=== PATIENT | male | born 1925 | race Caucasian/White ===

== ENCOUNTER 2016-10-25 21:45 | Inpatient (IN) | payer OTHER ==
[~2016-10-25] VITALS: Ht 172.7 cm; Wt 104.0 kg
[2016-10-25] MEDS ORDERED: ASPIRIN 325 MG TAB PO STA (21:50)
[2016-10-25] MEDS ORDERED: FUROSEMIDE 40 MG INJ IV STA (21:50)
[2016-10-25] MEDS ORDERED: NITROGLYCERIN 50 MG/D5W (PMX) 250 ML IV STA (21:50)
[2016-10-25 22:24] LABS: ABNORMAL IP MESSAGE 1; HEMATOCRIT 45.5 % (42.0-52.0); HEMOGLOBIN 14.9 g/dl (14.0-18.0); MEAN CORPUSCULAR HGB CONC 32.7 g/dl (32.0-37.0); MEAN CORPUSCULAR VOLUME 97.6 fl (82.0-101.0); PLATELET COUNT 255 10^3/UL (140-415); POSITIVE DIFF @See below; RED BLOOD COUNT 4.66 10^6/ul (4.70-6.10); RED CELL DISTRIBUTION WIDTH 12.7 % (11.5-14.5); WHITE BLOOD COUNT 14.7 10^3/ul (4.8-10.8)
[2016-10-25 22:40] LABS: INR 0.98
--- NOTE | 2016-10-25 22:40 | RADRPT ---
PROCEDURE: XR Chest. CLINICAL INDICATION: Chest pain. TECHNIQUE: Single frontal view of the chest. COMPARISON: None. FINDINGS: Cardiomegaly. Atherosclerotic calcifications in the thoracic aorta. Pulmonary vascular congestion an d bilateral patchy air space disease with right mid lung and left lung base atelectasis. No signs of pleural fluid or pneumothorax are seen. The osseous structures and soft tissues are unremarkable. IMPRESSION: Mild to moderate failure. RPTAT: [facility]U Physician Katlin Date Time Electronically viewed and signed by Physician Katlin on 10/25/2016 22:40 RS/
[2016-10-25 22:41] LABS: PARTIAL THROMBOPLASTIN TIME 29.6 Sec (25.0-35.0)
[2016-10-25 22:43] LABS: ANION GAP 14 (8-16); BLOOD UREA NITROGEN 24 mg/dl (7-20); CALCIUM 9.4 mg/dl (8.4-10.2); CARBON DIOXIDE 30 mmol/L (21-31); CHLORIDE 103 mmol/L (97-110); CREATININE 0.87 mg/dl (0.61-1.24); GLUCOSE 133 mg/dl (70-220); POTASSIUM 4.3 mmol/L (3.5-5.1); SODIUM 143 mmol/L (135-144)
[2016-10-25 22:55] LABS: B-TYPE NATRIURETIC PEPTIDE 343 PG/ML (0-450)
[2016-10-25 22:58] LABS: TROPONIN-I < 0.012 ng/ml (0.00-0.12)
[2016-10-25] MEDS ORDERED: CARV6.2579 PO (23:26)
[2016-10-25] MEDS ORDERED: POLY17PO6 PO (23:26)
[2016-10-25] MEDS ORDERED: LATA2.5D9 BOTH EYES (23:26)
[2016-10-25] MEDS ORDERED: OMEG-135 PO (23:26)
[2016-10-25] MEDS ORDERED: ASPI-664 PO (23:26)
[2016-10-25] MEDS ORDERED: MIRA50TA PO (23:26)
[2016-10-25] MEDS ORDERED: MULTI PO (23:26)
[2016-10-25] MEDS ORDERED: TAMS0.4C2 PO (23:26)
[2016-10-25] MEDS ORDERED: LISI40TA9 PO (23:26)
[2016-10-25] MEDS ORDERED: FELO2.5T3 PO (23:26)
[2016-10-25] MEDS ORDERED: GLUC100015 PO (23:26)
--- NOTE | 2016-10-25 23:32 | ERA ---
ER Documentation Chief Complaint Date/Time DATE: 10/25/16 TIME: 23:23 Chief Complaint BIB A RA89 from home,SOB,O2 sat on room air 70s per EMS report HPI 89-year-old male was brought in by paramedics in respiratory extremis on CPAP for acute onset shortness of breath started shortly after the patient had eaten earlier in the evening. His condition deteriorated and was called. On arrival the patient had oxygen saturation in the 70s on room air. He had chest discomfort as well. History is obtained from patient's is unable to speak currently. ROS Unobtainable. Allergies Allergies: Coded Allergies: No Known Allergy (Unverified , 10/25/16) PMhx/Soc Medical and Surgical Hx: pt denies Surgical Hx History of Surgery: No Anesthesia Reaction: No Hx Neurological Disorder: No Hx Respiratory Disorders: No Hx Cardiac Disorders: Yes (htn, hyperlipidemia ) Hx Psychiatric Problems: No Hx Miscellaneous Medical Probl: No Hx Alcohol Use: No Hx Substance Use: No Hx Tobacco Use: No Smoking Status: Never smoker Physical Exam Vitals Vital Signs Date Time Temp Pulse Resp B/P Pulse Ox O2 Delivery O2 Flow Rate FiO2 10/25/16 22:51 99.6 75 20 126/64 100 BIPAP 10/25/16 22:29 99.6 82 20 132/81 100 BIPAP 10/25/16 22:19 99.6 82 25 140/78 100 BIPAP 10/25/16 22:01 101 96 100 10/25/16 21:56 99.6 118 25 204/131 100 Physical Exam Const: [] Severe respiratory distress. Head: Atraumatic Eyes: Normal Conjunctiva ENT: Normal External Ears, Nose and Mouth. Neck: Full range of motion..~ JVD to the level of the mandible. . Resp: Decreased bibasilar breath sounds, tachypnea with accessory muscle use. Including the scalenes. Cardio: Regular Tachycardia, no murmurs Abd: Soft, non tender, non distended. Normal bowel sounds Skin: No petechiae or rashes Back: No midline or flank tenderness Ext: Mild pedal edema Neur: Awake and alert, Moves all 4 extremities with no focal deficits. Psych: Anxious. Result Diagram: 10/25/16215610/25/162156 Results 24 hrs Laboratory Tests Test 10/25/16 21:57 White Blood Count 14.710^3/ul Red Blood Count 4.6610^6/ul Hemoglobin 14.9g/dl Hematocrit 45.5% Mean Corpuscular Volume 97.6fl Mean Corpuscular Hemoglobin 32.0pg Mean Corpuscular Hemoglobin Concent 32.7g/dl Red Cell Distribution Width 12.7% Platelet Count 10159^3/UL Mean Platelet Volume 11.0fl Neutrophils % % Lymphocytes % % Monocytes % % Eosinophils % % Basophils % % Nucleated Red Blood Cells % 0.0/100WBC Neutrophils # 10^3/ul Lymphocytes # 10^3/ul Monocytes # 10^3/ul Eosinophils # 10^3/ul Basophils # 10^3/ul Nucleated Red Blood Cells # 10^3/ul Prothrombin Time 13.0Sec Prothrombin Time Ratio 1.0 INR International Normalized Ratio 0.98 Activated Partial Thromboplast Time 29.6Sec Sodium Level 143mmol/L Potassium Level 4.3mmol/L Chloride Level 103mmol/L Carbon Dioxide Level 30mmol/L Anion Gap 14 Blood Urea Nitrogen 24mg/dl Creatinine 0.87mg/dl Glucose Level 133mg/dl Calcium Level 9.4mg/dl Troponin I < 0.012ng/ml B-Type Natriuretic Peptide 343PG/ML Current Medications Medications (Trade) Dose Ordered Sig/Shan Route PRN Reason Start Time Stop Time Status Last Admin Dose Admin Aspirin 325 mg 325 mg ONCE STAT PO 10/25/16 21:50 10/25/16 21:51 DC Nitroglycerin/ Dextrose (Nitroglycerin 50 Mg/D5W (Pmx)) 250 ml @ 6 mls/hr ONCE STAT IV 10/25/16 21:50 10/27/16 15:29 10/25/16 22:05 Furosemide (Lasix) 40 mg ONCE STAT IV 10/25/16 21:50 10/25/16 21:51 DC 10/25/16 22:05 Procedures/MDM Hypoxic respiratory failure possibly secondary to congestive heart failure. Market ST depressions in the anterolateral leads on histology technician EKG with mild resolution of the lateral depressions but still ST depressions in anterior leads concerning for acute ischemia. Was given aspirin. Patient was immediately placed on BiPAP and nitro drip was started at 30 mcg. Patient was given 40 mg of Lasix. Symptoms began to resolve within 20 minutes and patient was able to provide some history. Conspicuously, BNP is not elevated. There is signs of mild heart failure on x-ray. Patient will be admitted to telemetry for further workup and monitoring of his condition and trending of troponins. Patient is significantly stabilized the patient is appropriate for telemetry. Dr. Hutchins is admitting. EKG interpretation: Sinus tachycardia rate of 106, normal axis, anterior ST depressions returning for acute ischemia, normal intervals. traffic monitor specialist interpretation: Initial sinus tachycardia followed by normal sinus rhythm Chest x-ray interpretation: Engorgement of pulmonary vasculature concerning for heart failure, no infiltrate, no pneumothorax, no fractures. Critical care time greater than 35 minutes: This includes treatment of acute respiratory failure with noninvasive positive pressure ventilation as well as treatment of hypertensive emergency with nitroglycerin drip, consideration of endotracheal intubation, multiple visits patient's bedside to reassess status, chart reviewed, discussion with patient and as well as admitting doctor. This does not include billable procedures per Departure Diagnosis: Primary Impression: Acute respiratory failure with hypoxia Additional Impressions: Congestive heart failure ST segment depression Condition: Serious MATTY BINGHAM DO Oct 25, 2016 23:32
[2016-10-25 23:47] VITALS: TEMP 99.6
[2016-10-25 23:51] LABS: EOSINOPHILS % (M) 2 % (0-7); MONOCYTES % (M) 8 % (0-11); PLATELET ESTIMATE NORMAL; POLYCHROMASIA 2+ (0-0)
[2016-10-26] VITALS (11 sets, daily range): BP systolic 121–155; BP diastolic 59–90; PULSE 54–62; RESP 18–21; Ht 172.7 cm; Wt 104.0 kg
[2016-10-26] MEDS ORDERED: ONDANSETRON 4 MG INJ IV PRN ×2 (04:00)
[2016-10-26] MEDS ORDERED: NACL 0.9% 3 ML SYG IV SCH (04:00)
[2016-10-26] MEDS ORDERED: ACETAMINOPHEN 325 MG TAB PO PRN ×2 (04:00)
[2016-10-26] MEDS ORDERED: FAMOTIDINE 20 MG TAB PO SCH ×2 (04:00→06:00)
[2016-10-26 06:00] LABS: BASOPHILS % 0.2 % (0.0-2.0); EOSINOPHILS # 0.1 10^3/ul (0.0-0.5); EOSINOPHILS % 0.8 % (0.0-7.0); HEMATOCRIT 38.7 % (42.0-52.0); HEMOGLOBIN 12.8 g/dl (14.0-18.0); LYMPHOCYTES # 2.1 10^3/ul (0.8-2.9); LYMPHOCYTES % 24.1 % (15.0-51.0); MEAN CORPUSCULAR HEMOGLOBIN 32.1 pg (29.0-33.0); MEAN CORPUSCULAR HGB CONC 33.1 g/dl (32.0-37.0); MONOCYTES % 10.8 % (0.0-11.0); NEUTROPHIL # 5.6 10^3/ul (1.6-7.5); NEUTROPHILS % 63.5 % (39.0-77.0); PLATELET COUNT 207 10^3/UL (140-415); RED BLOOD COUNT 3.99 10^6/ul (4.70-6.10); RED CELL DISTRIBUTION WIDTH 12.8 % (11.5-14.5); WHITE BLOOD COUNT 8.8 10^3/ul (4.8-10.8)
[2016-10-26] MEDS ORDERED: FUROSEMIDE 40 MG INJ IV SCH (06:00)
--- NOTE | 2016-10-26 06:54 | HP ---
Date/Time of Note Date/Time of Note DATE: 10/26/16 TIME: 06:51 Assessment/Plan VTE Prophylaxis VTE Prophylaxis Intervention: SCD's Lines/Catheters IV [facility] Saline Lock Urinary Cath still in place: Yes Reason Cath still needed: other (indicate) (aggressive diureses, monitor UO) Assessment/Plan Chief Complaint/Hosp Course This is a 89-year-old male being admitted to the telemetry floor for: #1 respiratory failure: CHF versus acs vs underlying cardiac disease. At the current time will trend troponins 3, will order a CT of the chest to further evaluate cardiac and lung morphology. Consult cardiology. Will provide Lasix for diuresis. Continue home medications. #2 Leukocytosis: At the current time patient is afebrile and no signs of any active infection at this time. Will continue to monitor signs for infection will check of the results of the CT of the chest. #3 hypertension: Continue lisinopril and carvedilol #4 BPH: We will hold Flomax right now #5 glaucoma: Continue eyedrops #6 DVT GI prophylaxis: SCDs, acid herbert Further treatment strategy will be implemented as per the clinical course Problems: HPI/ROS Admit Date/Time Admit Date/Time Oct 25, 2016 at 23:35 Hx of Present Illness Chief complaint: Shortness of breath This is a 89-year-old male was brought in by paramedics in respiratory distress on CPAP for acute onset shortness of breath started shortly after the patient had eaten earlier in the evening and had a bowel movement. . On arrival the patient had oxygen saturation in the 70s on room air. He had chest discomfort as well. Upon my examination patient was seen in bed sleeping in no acute distress. He is easily arousable. Patient reports that approximately a week or so ago he fell down from his bed and experienced right-sided pain to the lateral part of his torso/flank. He went to see his primary care doctor who thought that maybe the patient may have sustained rib fracture. Patient today was attempting have a bowel movement were he started experiencing shortness of breath that is why he came to the hospital. He still reports pain on his right flank/lateral thorax. Allergies: NKDA Medications: See JOI JARRELL Const: As per HPI Eyes : No pain discharge or redness or change in visual acuity ENT: No pain, sore throat, congestion, congestion, dysphagia or discharge Respiratory: As per HPI Cardiovascular: No chest pain, palpitation, PND, or edema GI : no change in appetite, abdominal pain, nausea, vomiting, diarrhea, constipation, or change in the color his stool Genitourinary: No dysuria, hematuria, flank pain , discharge or CVA tenderness Musculoskeletal: As per HPI Skin: No rash, bruising or hives Neuro: No headache, dizziness, syncope, seizure, focal weakness Endocrine: No polyuria, polydipsia, temperature intolerance Psych: No hallucination, depression, anxiety or suicidal ideation PMH/Family/Social Past Medical History Hypertension, BPH Past Surgical History Past Surgical Hx: no surgical history Family History Significant Family History: no pertinent family hx Social History Alcohol Use: none Smoking Status: Never smoker Drug Use: none Exam/Review of Systems Vital Signs Vitals Vital Signs Date Time Temp Pulse Resp B/P Pulse Ox O2 Delivery O2 Flow Rate FiO2 10/26/16 05:18 2.0 10/26/16 04:00 56 10/26/16 04:00 97.8 20 155/90 99 10/26/16 01:00 Nasal Cannula 10/25/16 22:01 100 Intake and Output 10/25/16 10/25/16 10/26/16 15:00 23:00 07:00 Intake Total 200 ml Output Total 1900 ml Balance -1700 ml Exam Exam General: Patient is lying comfortably in bed in no acute distress sleeping easily arousable HEENT: Atraumatic, normocephalic. The pupils are equal, round and reactive. Extraocular motor are intact Neck: Supple with full range of motion. No rigidity or meningismus Chest: Nontender Lungs: Bilateral crackles diffusely, Heart: Normal S1-S2, Regular rhythm and rate. No overt murmurs appreciated Abdomen: Soft , nontender, nondistended , bowel sounds are present. No guarding no rebound tenderness , No masses or organomegaly. No costovertebral temporal angle mass Extremities: 1+ pitting edema of the bilateral lower extremity up to the midshin Neurologic: Normal mental status, speech normal, cranial nerves II through XII are intact, motor and sensory are intact, no focal weakness Skin: Bruising exhibited at the right lateral thorax/flank Additional Comments PROCEDURE: XR Chest. CLINICAL INDICATION: Chest pain. TECHNIQUE: Single frontal view of the chest. COMPARISON: None. FINDINGS: Cardiomegaly. Atherosclerotic calcifications in the thoracic aorta. Pulmonary vascular congestion and bilateral patchy air space disease with right mid lung and left lung base atelectasis. No signs of pleural fluid or pneumothorax are seen. The osseous structures and soft tissues are unremarkable. IMPRESSION: Mild to moderate failure. RPTAT: [facility]U Meaghan Peterson Physician Date Time Electronically viewed and signed by Meaghan Peterson Physician on 10/25/2016 22:40 RS/ CC: MATTY BINGHAM DO EKG shows sinus tachycardia 105 bpm, ST depressions in leads II and V5 Labs Result Diagram: 10/26/16 0429 10/25/16 2157 Medications Medications Current Medications Ondansetron HCl (Zofran Inj) 4 mg Q6H PRN IV NAUSEA AND/OR VOMITING; Start at 04:00 Acetaminophen (Tylenol Tab) 650 mg Q6H PRN PO PAIN LEVEL 1-3 OR FEVER; Start at 04:00 Enoxaparin Sodium (Lovenox) 40 mg DAILY SC ; Start 10/26/16 at 09:00 Furosemide (Lasix) 40 mg DAILY@06 IV Last administered on 10/26/16 06:07; Admin Dose 40 MG; Start 10/26/16 at 06:00 Famotidine (Pepcid) 20 mg Q12H PO Last administered on 10/26/16 06:07; Admin Dose 20 MG; Start 10/26/16 at 06:00 FABRIZIO VALENCIA Oct 26, 2016 06:54
[2016-10-26 06:56] LABS: CK-MB 4.93 ng/ml (0.0-2.4); TROPONIN-I 0.216 ng/ml (0.00-0.12)
[2016-10-26 08:20] LABS: ALBUMIN 3.5 g/dl (3.3-4.9); ALBUMIN/GLOBULIN RATIO 1.25; BILIRUBIN,INDIRECT 0.2 mg/dl (0-1.1); BILIRUBIN,TOTAL 0.2 mg/dl (0.2-1.3); CALCIUM 9.3 mg/dl (8.4-10.2); CREATININE 0.72 mg/dl (0.61-1.24); POTASSIUM 4.1 mmol/L (3.5-5.1); TOTAL PROTEIN 6.3 g/dl (6.1-8.1)
[2016-10-26 09:19] LABS: AADO2 Arterial 288.5 mmHg (7.0-24.0); Allen Test ACCEPTAB; Arterial Base Excess 2.9 mmol/L (-3.0-3); Arterial COHb 0.3 % (0.0-3.0); Arterial Fraction of Oxyhgb 98.8 % (93.0-99.0); Arterial HCO3 29.3 mmol/L (22.0-26.0); Arterial MetHb 0.3 % (0.0-1.5); Arterial Total Hemglobin 13.9 g/dl (12.0-18.0); Blood Gas IEPAP 18/8; Blood Gas PS 10; MODE MASK - BIPAP
[2016-10-26] MEDS ORDERED: HEPARIN 1000 UNITS/ML 10 ML INJ IV ONE (09:30)
[2016-10-26] MEDS ORDERED: HEPARIN 1000 UNITS/ML 10 ML INJ IV PRN (09:30)
[2016-10-26] MEDS ORDERED: HEPARIN 25000 UNITS/250 ML 250 ML IV SCH (09:30)
[2016-10-26 10:01] LABS: INR 1.01; PROTIME 13.3 Sec (12.2-14.2)
[2016-10-26 10:02] LABS: PARTIAL THROMBOPLASTIN TIME 32.2 Sec (25.0-35.0)
[2016-10-26] MEDS: LISINOPRIL 20 MG TAB PO SCH (10:21)
[2016-10-26] MEDS: ASPIRIN (EC) 81 MG TAB PO SCH (10:21)
[2016-10-26 10:24] LABS: CK-MB 4.72 ng/ml (0.0-2.4); TROPONIN-I 0.147 ng/ml (0.00-0.12)
[2016-10-26] MEDS: ENOXAPARIN 40 MG/0.4 ML SYG SC SCH (11:43)
[2016-10-26] MEDS ORDERED: ASPIRIN (EC) 81 MG TAB PO ONE (15:30)
--- NOTE | 2016-10-26 15:31 | PN ---
Date/Time of Note Date/Time of Note DATE: 10/26/16 TIME: 15:24 Assessment/Plan VTE Prophylaxis VTE Prophylaxis Intervention: SCD's Lines/Catheters IV Catheter Type (from Nrs): Saline Lock Urinary Cath still in place: Yes Reason Cath still needed: urinary retention Assessment/Plan Assessment/Plan 89 yo M with pmhx HTN and BPH admitted for SOB, clinically found to have volume overload. Pt also with elevated troponin, suspect type 2 NSTEMI from demand from likely acute systolic HF. Hospitalization notable for AUR -CAD risk factor eval: check lipids, a1c 5.8. cont home BP meds start daily baby asa cards consult requested though given troponin not markedly elevated, I personally would be inclined towards outpatient cath v medical management given pt's advanced age -cont dieresis, await TTE result -cont home bladder/prostate meds -cont home glaucoma drops Subjective 24 Hr Interval Summary Free Text/Dictation Pt denies any CHF hx states his only pmhx is BPH and HTN Exam/Review of Systems Vital Signs Vitals Vital Signs Date Time Temp Pulse Resp B/P Pulse Ox O2 Delivery O2 Flow Rate FiO2 10/26/16 12:24 58 10/26/16 11:50 98.1 19 121/59 98 10/26/16 08:00 Nasal Cannula 4.0 10/25/16 22:01 100 Intake and Output 10/25/16 10/25/16 10/26/16 15:00 23:00 07:00 Intake Total 200 ml Output Total 1900 ml Balance -1700 ml Exam nad no mrg dec BS bl bases abd soft 1+ pitting edema to bl knees trops already downtrending TTE pending bnp 300s Results Result Diagram: 10/26/16 0429 10/26/16 0429 Results 24 hrs Laboratory Tests Test 10/25/16 21:57 10/25/16 23:12 10/26/16 04:29 10/26/16 09:13 White Blood Count 14.7 H 8.8 # Red Blood Count 4.66 L 3.99 L Hemoglobin 14.9 12.8 L Hematocrit 45.5 38.7 L Mean Corpuscular Volume 97.6 97.0 Mean Corpuscular Hemoglobin 32.0 32.1 Mean Corpuscular Hemoglobin Concent 32.7 33.1 Red Cell Distribution Width 12.7 12.8 Platelet Count 255 207 Mean Platelet Volume 11.0 H 11.0 H Neutrophils % 63.5 Segmented Neutrophils % (Manual) 32 L Lymphocytes % 24.1 Lymphocytes % (Manual) 58 H Monocytes % 10.8 Monocytes % (Manual) 8 Eosinophils % 0.8 Eosinophils % (Manual) 2 Basophils % 0.2 Nucleated Red Blood Cells % 0.0 0.0 Neutrophils # 5.6 Absolute Lymphocytes (Manual) 8.5 H Lymphocytes # 2.1 Monocytes # 1.0 H Absolute Monocytes (Manual) 1.1 H Eosinophils # 0.1 Basophils # 0.0 Nucleated Red Blood Cells # 0.0 Platelet Estimate NORMAL Polychromasia 2+ Prothrombin Time 13.0 13.3 Prothrombin Time Ratio 1.0 1.0 INR International Normalized Ratio 0.98 1.01 Activated Partial Thromboplast Time 29.6 32.2 Sodium Level 143 139 Potassium Level 4.3 4.1 Chloride Level 103 102 Carbon Dioxide Level 30 30 Anion Gap 14 11 Blood Urea Nitrogen 24 H 23 H Creatinine 0.87 0.72 Glucose Level 133 109 Calcium Level 9.4 9.3 Troponin I < 0.012 0.216 *H 0.147 *H B-Type Natriuretic Peptide 343 Blood Gas Specimen Source Blood arterial Arterial Blood Date Drawn 10/25/2016 11:38:00 PM Arterial Blood pH (Temp corrected) 7.368 Arterial Blood pCO2 (Temp correct) 52.1 H Arterial Blood pO2 (Temp corrected) 372.4 H Arterial Blood HCO3 29.3 H Arterial Blood Base Excess 2.9 Arterial Blood Oxygen Saturation 99.4 Kt Test ACCEPTAB Arterial Blood Gas Puncture Site Right Radial Arterial Blood Carboxyhemoglobin 0.3 Arterial Blood Methemoglobin 0.3 Blood Gas A-a O2 Differential 288.5 H Oxyhemoglobin Percent 98.8 Total Hemoglobin 13.9 Blood Gas Temperature 37.0 Blood Gas Respiration Rate 20.0 Blood Gas Actual Respiration Rate 24 Blood Gas Modality MASK - BIPAP FiO2 100.0 Blood Gas Tidal Volume 574.0 Blood Gas Pressure Support 10 Blood Gas IPAP/EPAP Ratio 18/8 Blood Gas Notified Whom MG Blood Gas Notified Time 10/25/2016 11:47:06 PM Hemoglobin A1c 5.8 Magnesium Level 2.0 Total Bilirubin 0.2 Direct Bilirubin 0.00 Indirect Bilirubin 0.2 Aspartate Amino Transf (AST/SGOT) 40 Alanine Aminotransferase (ALT/SGPT) 33 Alkaline Phosphatase 61 Creatine Kinase 169 166 Creatine Kinase Index 2.9 2.8 Creatinine Kinase MB (Mass) 4.93 H 4.72 H Total Protein 6.3 Albumin 3.5 Globulin 2.80 Albumin/Globulin Ratio 1.25 Thyroid Stimulating Hormone (TSH) 2.160 Medications Medications Current Medications Ondansetron HCl (Zofran Inj) 4 mg Q6H PRN IV NAUSEA AND/OR VOMITING; Start at 04:00 Acetaminophen (Tylenol Tab) 650 mg Q6H PRN PO PAIN LEVEL 1-3 OR FEVER; Start at 04:00 Enoxaparin Sodium (Lovenox) 40 mg DAILY SC Last administered on 10/26/16 11:43 ; Admin Dose 40 MG; Start 10/26/16 at 09:00 Furosemide (Lasix) 40 mg DAILY@06 IV Last administered on 10/26/16 06:07; Admin Dose 40 MG; Start 10/26/16 at 06:00 Famotidine (Pepcid) 20 mg Q12H PO Last administered on 10/26/16 06:07; Admin Dose 20 MG; Start 10/26/16 at 06:00 Aspirin (Halfprin) 81 mg DAILY PO Last administered on 10/26/16 10:21; Admin Dose 81 MG; Start 10/26/16 at 09:30 Carvedilol (Coreg) 6.25 mg BID PO Last administered on 10/26/16 10:23; Admin Dose 6.25 MG; Start 10/26/16 at 09:30 Latanoprost (Xalatan) 1 drop QHS BOTH EYES ; Start 10/26/16 at 21:00 Lisinopril (Zestril) 40 mg DAILY PO Last administered on 10/26/16 10:21; Admin Dose 40 MG; Start 10/26/16 at 09:30 NADIA EDWARDS MD Oct 26, 2016 15:31
[2016-10-26] MEDS: POLYETHYLENE GLYCOL 17 GM PACKET PO SCH (16:30)
[2016-10-26 16:41] LABS: CHOL/HDL RATIO 3.2 RATIO
[2016-10-26] MEDS ORDERED: SOD CHLORIDE 0.9% 100 ML ONE (20:43)
[2016-10-26] MEDS ORDERED: IOHEXOL 100 ML ONE (20:43)
--- NOTE | 2016-10-26 21:00 | RADRPT ---
Echocardiogram Report Patient Name: CARL VILLAFUETRE Gender: Male Date: 1925 Study Date: 26-Oct-2016 [employer] Intern: Verito Alexandre [facility] Location: [id number] Ref. Physician: FABRIZIO VALENCIA Quality: Adequate Procedures: Transthoracic echocardiogram with complete 2D, M-Mode, and doppler examination. Indications: Edema. Shortness of breath. 2D/M Mode Doppler Measurement Value Normal Ranges Measurement Value Normal Ranges LVIDd 2D 3.3 3.5 - 5.6 cm FREDY Vmax 1.7 cm2 LVIDs 2D 2.3 2.1 - 4.1 cm FREDY VTI 1.7 cm2 LVPWd 2D 1.2 0.6 - 1.1 cm AV Mean Kt 1.8 m/sec IVSd 2D 1.3 0.6 - 1.1 cm AV Mean PG 14.5 mmHg AoR Diam 2D 2.4 2.0 - 3.7 cm AV Peak Kt 2.6 m/sec EDV 2D 44.2 cm3 AV Peak PG 28.0 mmHg ESV 2D 12.9 cm3 AV VTI 65.6 cm LA Dimen 2D 3.5 2.3 - 4.0 cm LVOT Mean Kt 0.9 m/sec LVOT Diam 2.2 cm LVOT Mean PG 3.4 mmHg LVOT Peak Kt 1.2 m/sec LVOT Peak PG 5.8 mmHg LVOT VTI 30.8 cm MV E Peak Kt 1.2 m/sec MV A Peak Kt 0.8 m/sec MV E/A 1.5 MV Decel Time 196 msec MV Decel Archer 6 MV E/A 1.5 TR Peak Kt 2.7 m/sec TR Peak PG 29.7 mmHg RVSP 38.0 mmHg Findings Left Ventricle: Normal left ventricular systolic function. Normal left ventricular cavity size. Mild concentric left ventricular hypertrophy. Ejection fraction is visually estimated at 60 %. Right Ventricle: Normal right ventricular size. Normal right ventricular systolic function. Left Atrium: The left atrium is normal in size. Right Atrium: The right atrium is normal in size. Mitral Valve: Mild mitral leaflet calcification. Mild mitral annular calcification. Mild mitral valve regurgitation. Aortic Valve: Mild aortic stenosis. Aortic valve Max velocity 2.65 m/sec. Max PG 28.00 mmHg. Mean PG 15.00 mmHg. Aortic valve area 1.80 cm2. Trace aortic valve regurgitation. Tricuspid Valve: Normal appearance of the tricuspid valve. Estimated peak PA systolic pressure 38 mmHg. There is mild tricuspid regurgitation. Pulmonic Valve: Normal pulmonic valve appearance. There is trace pulmonic regurgitation. Pericardium: Normal pericardium with no significant pericardial effusion. Aorta: Normal aortic root. IVC: Dilated IVC with respiratory collapse consistent with elevated right atrial pressure. Conclusions 1.Normal left ventricular systolic function. Normal left ventricular cavity size. Mild concentric left ventricular hypertrophy. Ejection fraction is visually estimated at 60-65 %. 2.Mild mitral leaflet calcification. Mild mitral annular calcification. Mild mitral regurgitation. 3.Mild to moderate aortic stenosis. Mean PG 15.00 mmHg. Aortic valve area 1.80 cm2. Trace aortic valve regurgitation. (consider repeat echo to recalculate aortic valve area/gradient as visually valve appears more stenotic than calculation). 4.Normal appearance of the tricuspid valve. Estimated peak PA systolic pressure 38 mmHg. There is mild tricuspid regurgitation. 5.Normal pulmonic valve appearance. There is trace pulmonic regurgitation. Electronically Signed By: Adolfo Maldonado 26-Oct-2016 20:59:44 -0700 Patient Name: CARL VILLAFUERTE Study Date: 26-Oct-2016 [id number]
[2016-10-26] MEDS: LATANOPROST 0.005% 2.5 ML OPH BOTH EYES SCH (21:11)
--- NOTE | 2016-10-26 22:42 | CONS ---
DATE OF ADMISSION: 10/25/2016 DATE OF CONSULTATION: 10/26/2016 REASON FOR CONSULTATION: Shortness of breath, assess congestive heart failure, positive troponin, assess acute coronary syndrome. REQUESTING PHYSICIAN: Dr. Woodson from the hospitalist service. HISTORY OF PRESENT ILLNESS: Mr. Mancilla is an 89-year-old male with a history of hypertension, dyslipidemia, lower extremity edema times approximately one year who states that approximately a week ago he had rolled out of his bed and landed on the ground and had rib and chest pain since that time, then had the onset of constipation for approximately one week, and had gone to another friend's house where they had dinner. After dinner, he came home, states that he used the bathroom and after that had significant difficulty breathing. Patient presented here to the emergency department at [facility]. Upon arrival, temperature 99.6, blood pressure markedly elevated at 204/131, pulse 118, respiratory 25, satting 100%. Patient's labs revealed white count 14.7 hemoglobin 14.9, platelet count of 255,000. Sodium of 143, potassium 4.3, creatinine 0.8, BUN 24. Troponin initially negative. BNP of 343. INR 0.89. ABG revealing a pH of 7.368, a paO2 of 372, a pCO2 of 52. Patient underwent a chest x-ray revealing mild to moderate congestive heart failure. Patient's electrocardiogram revealed sinus tachycardia, rate 106, normal axis with inferolateral and anterior ST depressions. Patient subsequently admitted to the floor and since admit to the floor was placed on aspirin, carvedilol, Zestril and Plendil. Patient's troponins trended going from negative to 0.216 and 0.147. Patient at this time denies chest pain, states he has ongoing mild shortness of breath which is significantly improved and abdominal discomfort and distention. PAST MEDICAL HISTORY: As above in HPI. MEDICATIONS IN HOSPITAL: 1. Plendil 2.5 mg daily. 2. Xalatan eye drops. 3. MiraLAX. 4. Aspirin 81 mg daily. 5. Carvedilol 6.25 mg p.o. b.i.d. 6. Zestril 40 mg daily. 7. Lovenox 40 mg subcu daily. 8. Lasix 4 mg IV daily. 9. Tylenol p.r.n. 10. Zofran p.r.n. ALLERGIES: NO KNOWN DRUG ALLERGIES. SOCIAL HISTORY: No tobacco, ETOH, illicit drug use. FAMILY HISTORY: No history of sudden cardiac or early CAD. REVIEW OF SYSTEMS: As above in HPI. CONSTITUTIONAL: No fevers, chills. RESPIRATORY: Shortness of breath. HEART: Possible congestive heart failure, positive troponin. GASTROINTESTINAL: No vomiting. GENITOURINARY: No hematuria. MUSCULOSKELETAL: Degenerative joint disease. PSYCH: Patient denies depression. NEUROLOGIC: No documented CVA. PHYSICAL EXAMINATION: VITAL SIGNS: Temperature of 97.8, blood pressure most recently of 151/79, pulse 67, respirations 18, sating 99% on 2 L. GENERAL: The patient is alert, awake, complaining of abdominal distention, discomfort, mild shortness of breath. NECK: JVP approximately 9 cm of water. LUNGS: Fair air movement throughout. HEART: Regular rate and rhythm. Normal S1, increased S2, 1/6 systolic murmur, nondisplaced PMI. ABDOMEN: Hyperactive bowel sounds, distended. EXTREMITIES: 2+ edema bilaterally. LABORATORY: Labs as above in HPI with most recently from today, sodium 139, potassium 4.1, creatinine 0.7, BUN 23, troponin 0.147, LDL 143, HDL 76, TSH 2.1. White blood cell count 8.8, hemoglobin 12.8, platelet count 207,000. IMAGING STUDIES: As above in HPI. No further imaging studies to review at this time. ECG as above in HPI. No further electrocardiogram to review at this time. IMPRESSION: 1. Positive troponin/concerning for non ST elevation myocardial infarction. 2. Electrocardiogram with anterior and inferolateral ST depressions, borderline. 3. Chest pain. 4. Possible congestive heart failure, question systolic versus diastolic, acute on chronic. 5. Constipation. 6. Status post recent fall, mechanical per description. 7. Hypertension. 8. History of dyslipidemia. RECOMMENDATIONS: 1. At this time, would maintain patient on telemetry monitoring to follow rhythm ratio closely. 2. Continue to trend the patient's cardiac enzymes, assess for any significant ongoing cardiac damage. 3. Continue patient's aspirin at this time in the setting of positive troponins and low-dose Lovenox. 4. Continue the patient's current carvedilol and Zestril, and patient has had Plendil added to his regimen. Follow closely. 5. Will give patient sublingual nitroglycerin for recurrent episodes of chest pain. 6. Check a 2D echo to further assess ejection fraction and wall motion, any major abnormalities. 7. Would initiate patient on statin therapy in the setting of elevated LDL, positive troponins, EKG abnormalities. 8. Patient would likely benefit from direct cardiac catheterization versus Lexiscan stress test during this index admission given EKG abnormalities, chest pain, positive troponin, which can be done when the patient has had improvement in constipation and overall volume status. Additionally, would check a venous ultrasound to assess for any deep venous thrombosis associated with the patient's lower extremity edema. Thank you for allowing me to take part in the care of this patient. I will continue to follow him very closely with you. Further recommendations will be made based on patient's hospital clinical course. Dictated By: Adolfo Maldonado MD /marissa/samantha /Document#: [id number] CC: Antelmo Woodson MD; Flaca Solis MD;*[facility]*
--- NOTE | 2016-10-26 23:13 | RADRPT ---
PROCEDURE: US venous lower extremities bilaterally. CLINICAL INDICATION: Bilateral lower extremity edema. TECHNIQUE: Sonographic evaluation of the lower extremities with compression, augmentation, and colo r Doppler imaging was performed. COMPARISON: None available. FINDINGS: Right lower extremity: Common femoral vein: Normal flow. Compressible and augmentable. Proximal superficial femoral vein: Normal flow. Compressible and augmentable. Mid superficial femoral vein: Normal flow. Compressible and augmentable. Distal superficial femoral vein: Normal flow. Compressible and augmentable. Popliteal vein: Normal flow. Compressible and augmentable. Calf veins: Normal flow. Left lower extremity: Common femoral vein: Normal flow. Compressible and augmentable. Proximal superficial femoral vein: Normal flow. Compressible and augmentable. Mid superficial femoral vein: Normal flow. Compressible and augmentable. Distal superficial femoral vein: Normal flow. Compressible and augmentable. Popliteal vein: Normal flow. Compressible and augmentable. Calf veins: Normal flow. IMPRESSION: 1. No evidence of deep vein thrombosis in the lower extremities bilaterally. RPTAT: HLBP .Nehemias Meza MD, MD Date Time Electronically viewed and signed by .Nehemias Meza MD, MD on 10/26/2016 23:13 .P/
--- NOTE | 2016-10-26 23:13 | RADRPT ---
AMENDMENT: 10/26/2016 11:17:34 PM Nehemias Meza M.D IN ADDITION TO THE STATED FINDINGS AND IMPRESSION: Musculoskeletal system and soft tissues: There is an acute mildly displaced fracture of the posterio r right 8th rib. IMPRESSION: 5. Acute mildly displaced fracture of the posterior right eighth rib. PROCEDURE: CTA chest pulmonary angiography. CLINICAL INDICATION: Dyspnea. Respiratory failure. TECHNIQUE: CT angiography of the chest was performed after the uneventful intravenous administratio n of 100 cc of Omnipaque 350. Coronal and sagittal reformations were performed. 3-D/multiplanar re formations were performed by the technologist and an independent workstation. The total exam CTDI = 7.04, 77.46, 18.52 mGy and the DLP equals 769.34 mGy-cm. One or more of the following dose reduction techniques were used: - Automated exposure control. - Adjustment of the mA and/or kV according to patient size. - Use of iterative reconstruction technique. COMPARISON: Chest x-ray dated 08/25/2016. FINDINGS: Pulmonary angiogram: There are no emboli through the level of the subsegmental pulmonary arteries. The main pulmonary artery is normal in caliber and there is no evidence of right heart strain. Lungs, pleura, airways, and thoracic inlet: There is mild interlobular septal thickening at the manda g bases. There are small bilateral effusions, right greater than left, with associated bibasilar com pressive atelectasis. There is mild diffuse ground-glass opacity and minor subsegmental atelectasis in the right upper lobe. There is no pneumothorax. There is a 3 mm nodule in the right middle lobe a nd there is a punctate calcified nodule in the right lower lobe and calcified mediastinal lymph node s, consistent with prior granulomatous disease. There is a 2 mm pleural-based nodule in the lateral basal left lower lobe.. The tracheobronchial tree is patent. Cardiovascular system, mediastinum, and lymphatics: The heart is enlarged without pericardial thicke miriam or effusion. There are atherosclerotic changes of the aorta, which is nonaneurysmal. There are aortic valvular and coronary artery calcifications. There is no axillary, hilar, or mediastinal nati opathy. Visualized upper abdomen: There is a 2 cm cyst at the upper pole of the right kidney. Musculoskeletal system and soft tissues: There is moderate to severe multilevel degenerative enthes opathy. There are no concerning osseous lesions. The soft tissues are unremarkable. IMPRESSION: 1. No pulmonary emboli through the level of the subsegmental pulmonary arteries. 2. Cardiomegaly with mild to moderate pulmonary edema and small bilateral effusions, right greater t knowles left. 3. Bilateral pulmonary nodules with the largest measuring 2 mm in the right middle lobe. Per the Fleischner Society, if the patient is at low risk, no further follow-up is needed. If the patient i s at high risk, follow-up at 12 months is optional. 4. Multivessel coronary artery calcifications and atherosclerotic changes of the aorta. RPTAT: HLBP .Nehemias Meza MD, MD Date Time Electronically viewed and signed by .Nehemias Meza MD, on 10/26/2016 23:17 .P/
--- NOTE | 2016-10-26 23:21 | RADRPT ---
PROCEDURE: XR right rib series. CLINICAL INDICATION: Fall on right side last week. TECHNIQUE: 4 views of the right rib cage are available for review COMPARISON: None available FINDINGS: The patient's known mildly displaced posterior right rib fracture is not clearly identifie d. The visualized heart is enlarged and there is bilateral perihilar opacity diffuse interstitial p rominence. There is a small right effusion. There is no pneumothorax. There are atherosclerotic kiesha nges of the aorta. IMPRESSION: 1. Nonvisualization of the patient's known mildly displaced posterior right rib fracture. 2. Cardiomegaly with findings suggestive of mild to moderate hydrostatic edema and small right effu dewey. No right pneumothorax. RPTAT: HLBP .Nehemias Meza MD, Date Time Electronically viewed and signed by .Nehemias Meza MD, on 10/26/2016 23:21 .P/
[2016-10-27] VITALS (13 sets, daily range): BP systolic 119–173; BP diastolic 56–93; PULSE 45–66; RESP 16–19
[2016-10-27] MEDS: FUROSEMIDE 40 MG INJ IV SCH ×2 (05:39→17:21)
[2016-10-27] MEDS ORDERED: MYRBETRIQ IS NON FORMULARY...PLEASE CONSIDER AN ORDER TO USE PATIENT'S OWN MED XX SCH (08:30)
[2016-10-27] MEDS: FELODIPINE (ER) 2.5 MG TAB PO SCH (08:38)
[2016-10-27] MEDS: POLYETHYLENE GLYCOL 17 GM PACKET PO SCH (08:38)
[2016-10-27] MEDS: ASPIRIN (EC) 81 MG TAB PO SCH (08:38)
[2016-10-27] MEDS: LISINOPRIL 20 MG TAB PO SCH (08:38)
[2016-10-27] MEDS: MULTIVITAMINS THERAPEUTIC TAB PO SCH (08:38)
[2016-10-27] MEDS: ENOXAPARIN 40 MG/0.4 ML SYG SC SCH (08:40)
[2016-10-27] MEDS ORDERED: ASPIRIN (EC) 81 MG TAB PO SCH (09:00)
[2016-10-27 09:06] LABS: CALCIUM 9.5 mg/dl (8.4-10.2); CREATININE 0.77 mg/dl (0.61-1.24)
[2016-10-27 09:18] LABS: TROPONIN-I 0.036 ng/ml (0.00-0.12)
[2016-10-27 09:21] LABS: CK-MB 3.37 ng/ml (0.0-2.4)
[2016-10-27] MEDS: TOLTERODINE (SR) 4 MG CAP PO SCH (11:53)
--- NOTE | 2016-10-27 15:37 | PN ---
Date/Time of Note Date/Time of Note DATE: 10/27/16 TIME: 15:35 Assessment/Plan VTE Prophylaxis VTE Prophylaxis Intervention: SCD's Lines/Catheters IV Catheter Type (from Nrsg): Saline Lock Urinary Cath still in place: No Assessment/Plan Assessment/Plan 89 yo M with pmhx HTN and BPH admitted for SOB, clinically found to have volume overload. Pt also with elevated troponin, suspect type 2 NSTEMI from demand. Hospitalization notable for AUR -CAD risk factor eval:, a1c 5.8. cont home BP meds start daily baby asa, start statin cards consult cath v stress -cont dieresis -cont home bladder/prostate meds -cont home glaucoma drops Subjective 24 Hr Interval Summary Free Text/Dictation Pt and want to go home Exam/Review of Systems Vital Signs Vitals Vital Signs Date Time Temp Pulse Resp B/P Pulse Ox O2 Delivery O2 Flow Rate FiO2 10/27/16 12:11 98.1 52 19 138/63 98 10/27/16 07:50 Nasal Cannula 4.0 10/25/16 22:01 100 Intake and Output 10/26/16 10/26/16 10/27/16 15:00 23:00 07:00 Intake Total 600 ml 450 ml Output Total 1200 ml Balance -600 ml 450 ml Exam nad no mrg lungs clear abd soft +LE edema TTE with preserved EF Results Result Diagram: 10/26/16 0429 10/27/16 0727 Results 24 hrs Laboratory Tests Test 10/26/16 15:50 10/27/16 07:27 Triglycerides Level 151 H Cholesterol Level 249 H LDL Cholesterol, Calculated 143 HDL Cholesterol 76 H Cholesterol/HDL Ratio 3.2 Sodium Level 140 Potassium Level 4.0 Chloride Level 97 Carbon Dioxide Level 38 H Anion Gap 9 Blood Urea Nitrogen 26 H Creatinine 0.77 Glucose Level 98 Calcium Level 9.5 Creatine Kinase 128 Creatine Kinase Index 2.6 Creatinine Kinase MB (Mass) 3.37 H Troponin I 0.036 Medications Medications Current Medications Ondansetron HCl (Zofran Inj) 4 mg Q6H PRN IV NAUSEA AND/OR VOMITING; Start at 04:00 Acetaminophen (Tylenol Tab) 650 mg Q6H PRN PO PAIN LEVEL 1-3 OR FEVER Last administered on 10/27/16t 03:53; Admin Dose 650 MG; Start 10/26/16 at 04:00 Enoxaparin Sodium (Lovenox) 40 mg DAILY SC Last administered on 10/27/16 08:40 ; Admin Dose 40 MG; Start 10/26/16 at 09:00 Aspirin (Halfprin) 81 mg DAILY PO Last administered on 10/27/16 08:38; Admin Dose 81 MG; Start 10/26/16 at 09:30 Carvedilol (Coreg) 6.25 mg BID PO Last administered on 10/27/16 08:38; Admin Dose 6.25 MG; Start 10/26/16 at 09:30 Latanoprost (Xalatan) 1 drop QHS BOTH EYES Last administered on 10/26/16 21:11 ; Admin Dose 1 DROP; Start 10/26/16 at 21:00 Lisinopril (Zestril) 40 mg DAILY PO Last administered on 10/27/16 08:38; Admin Dose 40 MG; Start 10/26/16 at 09:30 Felodipine (Plendil) 2.5 mg DAILY PO Last administered on 10/27/16 08:38; Admin Dose 2.5 MG; Start 10/27/16 at 09:00 Multivitamins Therapeutic (Theragran) 1 tab DAILY PO Last administered on 08:38; Admin Dose 1 TAB; Start 10/27/16 at 09:00 Polyethylene Glycol (Miralax) 8.5 gm DAILY PO Last administered on 10/27/16 08 :38; Admin Dose 8.5 GM; Start 10/26/16 at 16:30 Tolterodine Tartrate (Detrol La) 4 mg DAILY PO Last administered on 10/27/16 11:53; Admin Dose 4 MG; Start 10/27/16 at 10:30 NADIA EDWARDS MD Oct 27, 2016 15:36
--- NOTE | 2016-10-27 16:36 | RADRPT ---
Vent Rate: 56 bpm RR Interval: 0 msec PA Interval: 146 msec QRS Duration: 82 msec QT Interval: 438 msec QTC Interval: 422 msec P-R-T Marilla: 31 - 44 - 60 degrees Sinus bradycardia Otherwise normal ECG Electronically Signed By: Ben Enamorado [phone]
--- NOTE | 2016-10-27 17:00 | CONS ---
Date/Time of Note Date/Time of Note DATE: 10/27/16 TIME: 16:54 Assessment/Plan Assessment/Plan Chief Complaint/Hosp Course IMPRESSION: 1. Positive troponin/concerning for non ST elevation myocardial infarction.-now trended negative/NL EF by echo 2. Electrocardiogram with anterior and inferolateral ST depressions, borderline. 3. Chest pain. 4. Possible congestive heart failure, diastolic, acute on chronic. 5. Constipation. 6. Status post recent fall, mechanical per description. 7. Hypertension-improved control 8. History of dyslipidemia.-LDL 146 HDL 76 9. Bradycardia Recc; -tele -serial ecg's -DEcrease dose of BB given bradycardia -Continue asa/statin/plendil -trend cardiac enzymes -Continue lasix diuresis -AM lexiscan to assess significance of positive troponin -Bowel regimen Problems: Consultation Date/Type/Reason Admit Date/Time Oct 25, 2016 at 23:35 Initial Consult Date 10/26/2016 Type of Consultation: cardiology Reason for Consultation Nstemi Referring Provider: LIO MORALEZ Exam/Review of Systems Vital Signs Vitals Vital Signs Date Time Temp Pulse Resp B/P Pulse Ox O2 Delivery O2 Flow Rate FiO2 10/27/16 15:42 98.1 58 19 119/56 98 10/27/16 07:50 Nasal Cannula 4.0 10/25/16 22:01 100 Intake and Output 10/26/16 10/26/16 10/27/16 15:00 23:00 07:00 Intake Total 600 ml 450 ml Output Total 1200 ml Balance -600 ml 450 ml Exam Review of Systems: CONSTITUTIONAL: No fevers, chills. PULMONARY: No sob CARDIOVASCULAR: No chest pain/palpitations GASTROINTESTINAL: No nausea/vomiting. GENITOURINARY: No hematuria/dysuria. MUSCULOSKELETAL: R flank pain PSYCHIATRIC: The patient denies depression. NEUROLOGIC: No weakness Constitutional: alert Psych: no complaints Head: normocephalic ENMT: mucosa pink and moist Neck: jvd (9 cm water), supple Respiratory: diminished breath sounds (at bases/B) Cardiovascular: regular rate and rhythm Gastrointestinal: non-tender, soft Musculoskeletal: muscle tone (normal) Extremities: edema (none) Neurological: other (No focal deficits) Results Result Diagram: 10/26/16 0429 10/27/16 0794 Results 24 hrs Laboratory Tests Test 10/27/16 07:27 Sodium Level 140 Potassium Level 4.0 Chloride Level 97 Carbon Dioxide Level 38 H Anion Gap 9 Blood Urea Nitrogen 26 H Creatinine 0.77 Glucose Level 98 Calcium Level 9.5 Creatine Kinase 128 Creatine Kinase Index 2.6 Creatinine Kinase MB (Mass) 3.37 H Troponin I 0.036 Medications Medications Current Medications Ondansetron HCl (Zofran Inj) 4 mg Q6H PRN IV NAUSEA AND/OR VOMITING; Start at 04:00 Acetaminophen (Tylenol Tab) 650 mg Q6H PRN PO PAIN LEVEL 1-3 OR FEVER Last administered on 10/27/16 03:53; Admin Dose 650 MG; Start 10/26/16 at 04:00 Enoxaparin Sodium (Lovenox) 40 mg DAILY SC Last administered on 10/27/16 08:40 ; Admin Dose 40 MG; Start 10/26/16 at 09:00 Aspirin (Halfprin) 81 mg DAILY PO Last administered on 10/27/16 08:38; Admin Dose 81 MG; Start 10/26/16 at 09:30 Carvedilol (Coreg) 6.25 mg BID PO Last administered on 10/27/16 08:38; Admin Dose 6.25 MG; Start 10/26/16 at 09:30 Latanoprost (Xalatan) 1 drop QHS BOTH EYES Last administered on 10/26/16 21:11 ; Admin Dose 1 DROP; Start 10/26/16 at 21:00 Lisinopril (Zestril) 40 mg DAILY PO Last administered on 10/27/16 08:38; Admin Dose 40 MG; Start 10/26/16 at 09:30 Felodipine (Plendil) 2.5 mg DAILY PO Last administered on 10/27/16 08:38; Admin Dose 2.5 MG; Start 10/27/16 at 09:00 Multivitamins Therapeutic (Theragran) 1 tab DAILY PO Last administered on 08:38; Admin Dose 1 TAB; Start 10/27/16 at 09:00 Polyethylene Glycol (Miralax) 8.5 gm DAILY PO Last administered on 10/27/16 08 :38; Admin Dose 8.5 GM; Start 10/26/16 at 16:30 Tolterodine Tartrate (Detrol La) 4 mg DAILY PO Last administered on 10/27/16t 11:53; Admin Dose 4 MG; Start 10/27/16 at 10:30 Atorvastatin Calcium (Lipitor) 40 mg HS PO ; Start 10/27/16 at 21:00 DWAYNE LYONS Oct 27, 2016 17:00
[2016-10-27] MEDS: ATORVASTATIN 40 MG TAB PO SCH (20:20)
[2016-10-27] MEDS: LATANOPROST 0.005% 2.5 ML OPH BOTH EYES SCH (21:03)
[2016-10-28] VITALS (12 sets, daily range): BP systolic 129–160; BP diastolic 56–70; PULSE 53–75; RESP 16–19
[2016-10-28] MEDS: FUROSEMIDE 40 MG INJ IV SCH (05:26)
[2016-10-28] MEDS: TOLTERODINE (SR) 4 MG CAP PO SCH (08:46)
[2016-10-28] MEDS: FELODIPINE (ER) 2.5 MG TAB PO SCH (08:47)
[2016-10-28] MEDS: ASPIRIN (EC) 81 MG TAB PO SCH (08:47)
[2016-10-28] MEDS: LISINOPRIL 20 MG TAB PO SCH (08:47)
[2016-10-28] MEDS: MULTIVITAMINS THERAPEUTIC TAB PO SCH (08:47)
[2016-10-28] MEDS: POLYETHYLENE GLYCOL 17 GM PACKET PO SCH (08:48)
[2016-10-28] MEDS: ENOXAPARIN 40 MG/0.4 ML SYG SC SCH (08:50)
[2016-10-28] MEDS ORDERED: REGADENOSON 0.4 MG/5 ML SYG ONE (10:08)
--- NOTE | 2016-10-28 12:04 | CARRPT ---
DATE OF PROCEDURE: 10/28/2016 LEXISCAN NUCLEAR STRESS TEST: DESCRIPTION OF PROCEDURE: Under continuous electrocardiograph monitoring, with the patient in supine position, 0.4 Regadenoson was injected intravenously, over a period of 20 seconds. The patient tolerated the pharmacologic agent with no significant discomfort. Subsequently, the stress dose of isotope was injected and the patient had myocardial perfusion scan. Uneventful LexiScan stress test. Results of the myocardial scan per radiologist. Dictated By: JENNA CARRANZA MD /marissa/maynor /Document#: [id number]
--- NOTE | 2016-10-28 14:56 | RADRPT ---
PROCEDURE: Nuclear medicine myocardial stress and rest scan. CLINICAL INDICATION: Chest pain. Elevated troponin. TECHNIQUE: The patient was stressed with 0.4 mg IV Lexiscan. 10 mCi technetium 99m Tetrofosmin ( Myoview) was administered rest. 30 mCi technetium 99m Tetrofosmin (Myoview) was administered duri ng stress. Images were obtained and reconstructed in the short axis, horizontal long axis, and vert ical long axis. Gated images were obtained and ejection fraction was calculated. COMPARISON: No prior study is available for comparison. FINDINGS: The stress and rest images demonstrate normal uptake throughout. There is no fixed abnormality or r eversible abnormality. There is no evidence of transient ischemic dilatation. Wall motion is normal. There is normal wall thickening during systole. Ejection fraction at stress is 68%. IMPRESSION: 1. No evidence of stress induced myocardial ischemia. 2. Ejection fraction at stress is 68%. RPTAT: QQ .Madan Troncoso MD, Date Time Electronically viewed and signed by .Madan Troncoso MD, on 10/28/2016 14:56 .R/
--- NOTE | 2016-10-28 15:44 | PN ---
Date/Time of Note Date/Time of Note DATE: 10/28/16 TIME: 15:42 Assessment/Plan VTE Prophylaxis VTE Prophylaxis Intervention: SCD's Lines/Catheters IV Catheter Type (from Nrsg): Saline Lock Urinary Cath still in place: No Assessment/Plan Assessment/Plan 89 yo M with pmhx HTN and BPH admitted for SOB, clinically found to have volume overload. Pt also with elevated troponin, suspect type 2 NSTEMI from demand. Stress test today negative -CAD risk factor eval:, a1c 5.8. cont home BP meds start daily baby asa, start statin stress test today negative -cont dieresis, convert to PO -cont home bladder/prostate meds -cont home glaucoma drops anticipate DC home in AM on BID PO lasix with close outpatient f/u Subjective 24 Hr Interval Summary Free Text/Dictation Sleeping is afternoon Exam/Review of Systems Vital Signs Vitals Vital Signs Date Time Temp Pulse Resp B/P Pulse Ox O2 Delivery O2 Flow Rate FiO2 10/28/16 12:03 63 10/28/16 11:58 98.1 19 154/70 96 10/27/16 22:33 2.0 10/27/16 20:00 Nasal Cannula 10/25/16 22:01 100 Intake and Output 10/27/16 10/27/16 10/28/16 15:00 23:00 07:00 Intake Total 950 ml 240 ml Output Total 1000 ml Balance 950 ml -760 ml Exam nad respirations nonlabored abd soft no rashes no edema stress test negative I/O net 1.5L neg Results Result Diagram: 10/26/16 0429 10/27/16 0727 Medications Medications Current Medications Ondansetron HCl (Zofran Inj) 4 mg Q6H PRN IV NAUSEA AND/OR VOMITING; Start at 04:00 Acetaminophen (Tylenol Tab) 650 mg Q6H PRN PO PAIN LEVEL 1-3 OR FEVER Last administered on 10/27/16 03:53; Admin Dose 650 MG; Start 10/26/16 at 04:00 Enoxaparin Sodium (Lovenox) 40 mg DAILY SC Last administered on 10/28/16 08:50 ; Admin Dose 40 MG; Start 10/26/16 at 09:00 Aspirin (Halfprin) 81 mg DAILY PO Last administered on 10/28/16 08:47; Admin Dose 81 MG; Start 10/26/16 at 09:30 Latanoprost (Xalatan) 1 drop QHS BOTH EYES Last administered on 10/27/16 21:03 ; Admin Dose 1 DROP; Start 10/26/16 at 21:00 Lisinopril (Zestril) 40 mg DAILY PO Last administered on 10/28/16 08:47; Admin Dose 40 MG; Start 10/26/16 at 09:30 Felodipine (Plendil) 2.5 mg DAILY PO Last administered on 10/28/16 08:47; Admin Dose 2.5 MG; Start 10/27/16 at 09:00 Multivitamins Therapeutic (Theragran) 1 tab DAILY PO Last administered on 08:47; Admin Dose 1 TAB; Start 10/27/16 at 09:00 Polyethylene Glycol (Miralax) 8.5 gm DAILY PO Last administered on 10/27/16 08 :38; Admin Dose 8.5 GM; Start 10/26/16 at 16:30 Tolterodine Tartrate (Detrol La) 4 mg DAILY PO Last administered on 10/28/16 08:46; Admin Dose 4 MG; Start 10/27/16 at 10:30 Atorvastatin Calcium (Lipitor) 40 mg HS PO Last administered on 10/27/16 20:20 ; Admin Dose 40 MG; Start 10/27/16 at 21:00 Carvedilol (Coreg) 3.125 mg BID PO ; Start 10/27/16 at 21:00 NADIA EDWARDS MD Oct 28, 2016 15:44
[2016-10-28] MEDS: FUROSEMIDE 40 MG TAB PO SCH (17:19)
[2016-10-28] MEDS: ATORVASTATIN 40 MG TAB PO SCH (20:52)
[2016-10-28] MEDS: LATANOPROST 0.005% 2.5 ML OPH BOTH EYES SCH (21:59)
--- NOTE | 2016-10-28 23:23 | PN ---
Date/Time of Note Date/Time of Note DATE: 10/28/16 TIME: 23:06 Assessment/Plan VTE Prophylaxis VTE Prophylaxis Intervention: LMWH Lines/Catheters IV Catheter Type (from [facility]): Saline Lock Urinary Cath still in place: No Subjective 24 Hr Interval Summary Free Text/Dictation Date/Time of Note Date/Time of Note DATE: 10/28/16 TIME: 16:54 Assessment/Plan Assessment/Plan Chief Complaint/Hosp Course IMPRESSION: 1. Positive troponin/concerning for non ST elevation myocardial infarction.-now trended negative; LVEF by echo mildly to moderately depressed. 2. Electrocardiogram with anterior and inferolateral ST depressions, borderline. 3. Chest pain. 4. Possible congestive heart failure, diastolic, acute on chronic. 5. Constipation. 6. Status post recent fall, mechanical per description. 7. Hypertension-improved control 8. History of dyslipidemia.- LDL 146, HDL 76 9. Bradycardia 10. Lexiscan nuclear stress test is (reportedly) negative for ischemia; LVEF by nuclear ~ 40% Recommendations: Consider discharge in AM if patient is stable and asymptomatic. -Decrease dose of BB given bradycardia -Continue asa/statin/plendil -Continue lasix diuresis --Bowel regimen Problems: Consultation Date/Type/Reason Admit Date/Time Oct 25, 2016 at 23:35 Initial Consult Date 10/26/2016 Type of Consultation: cardiology Reason for Consultation Nstemi Referring Provider: LIO MORALEZ Exam/Review of Systems Vital Signs Vitals Vital Signs Date Time Temp Pulse Resp B/P Pulse Ox O2 Delivery O2 Flow Rate FiO2 10/27/16 15:42 98.1 58 19 119/56 98 10/27/16 07:50 Nasal Cannula 4.0 10/25/16 22:01 100 Intake and Output 10/26/16 10/26/16 10/27/16 15:00 23:00 07:00 Intake Total 600 ml 450 ml Output Total 1200 ml Balance -600 ml 450 ml Exam Review of Systems: CONSTITUTIONAL: No fevers, chills. PULMONARY: No sob CARDIOVASCULAR: No chest pain/palpitations GASTROINTESTINAL: No nausea/vomiting. GENITOURINARY: No hematuria/dysuria. MUSCULOSKELETAL: R flank pain PSYCHIATRIC: The patient denies depression. NEUROLOGIC: No weakness Constitutional: alert Psych: no complaints Head: normocephalic ENMT: mucosa pink and moist Neck: jvd (9 cm water), supple Respiratory: diminished breath sounds (at bases/B) Cardiovascular: regular rate and rhythm Gastrointestinal: non-tender, soft Musculoskeletal: muscle tone (normal) Extremities: edema (none) Neurological: other (No focal deficits) Results Result Diagram: 10/26/16 0429 10/27/16 0727 Results 24 hrs Laboratory Tests Test 10/27/16 07:27 Sodium Level 140 Potassium Level 4.0 Chloride Level 97 Carbon Dioxide Level 38 H Anion Gap 9 Blood Urea Nitrogen 26 H Creatinine 0.77 Glucose Level 98 Calcium Level 9.5 Creatine Kinase 128 Creatine Kinase Index 2.6 Creatinine Kinase MB (Mass) 3.37 H Troponin I 0.036 Medications Medications Current Medications Ondansetron HCl (Zofran Inj) 4 mg Q6H PRN IV NAUSEA AND/OR VOMITING; Start at 04:00 Acetaminophen (Tylenol Tab) 650 mg Q6H PRN PO PAIN LEVEL 1-3 OR FEVER Last administered on 10/27/16 03:53; Admin Dose 650 MG; Start 10/26/16 at 04:00 Enoxaparin Sodium (Lovenox) 40 mg DAILY SC Last administered on 10/27/16 08:40 ; Admin Dose 40 MG; Start 10/26/16 at 09:00 Aspirin (Halfprin) 81 mg DAILY PO Last administered on 10/27/16 08:38; Admin Dose 81 MG; Start 10/26/16 at 09:30 Carvedilol (Coreg) 6.25 mg BID PO Last administered on 10/27/16 08:38; Admin Dose 6.25 MG; Start 10/26/16 at 09:30 Latanoprost (Xalatan) 1 drop QHS BOTH EYES Last administered on 10/26/16 21:11 ; Admin Dose 1 DROP; Start 10/26/16 at 21:00 Lisinopril (Zestril) 40 mg DAILY PO Last administered on 10/27/16 08:38; Admin Dose 40 MG; Start 10/26/16 at 09:30 Felodipine (Plendil) 2.5 mg DAILY PO Last administered on 10/27/16 08:38; Admin Dose 2.5 MG; Start 10/27/16 at 09:00 Multivitamins Therapeutic (Theragran) 1 tab DAILY PO Last administered on 08:38; Admin Dose 1 TAB; Start 10/27/16 at 09:00 Polyethylene Glycol (Miralax) 8.5 gm DAILY PO Last administered on 10/27/16 08 :38; Admin Dose 8.5 GM; Start 10/26/16 at 16:30 Tolterodine Tartrate (Detrol La) 4 mg DAILY PO Last administered on 10/27/16 11:53; Admin Dose 4 MG; Start 10/27/16 at 10:30 Atorvastatin Calcium (Lipitor) 40 mg HS PO ; Start 10/27/16 at 21:00 Cristina Champagne MD Exam/Review of Systems Vital Signs Vitals Vital Signs Date Time Temp Pulse Resp B/P Pulse Ox O2 Delivery O2 Flow Rate FiO2 10/28/16 21:03 2.0 10/28/16 20:19 65 10/28/16 19:40 98.3 19 144/67 95 10/27/16 20:00 Nasal Cannula 10/25/16 22:01 100 Intake and Output 10/27/16 10/27/16 10/28/16 15:00 23:00 07:00 Intake Total 950 ml 240 ml Output Total 1000 ml Balance 950 ml -760 ml Results Result Diagram: 10/26/16 0429 10/27/16 0727 Medications Medications Current Medications Ondansetron HCl (Zofran Inj) 4 mg Q6H PRN IV NAUSEA AND/OR VOMITING; Start at 04:00 Acetaminophen (Tylenol Tab) 650 mg Q6H PRN PO PAIN LEVEL 1-3 OR FEVER Last administered on 10/27/16 03:53; Admin Dose 650 MG; Start 10/26/16 at 04:00 Enoxaparin Sodium (Lovenox) 40 mg DAILY SC Last administered on 10/28/16 08:50 ; Admin Dose 40 MG; Start 10/26/16 at 09:00 Aspirin (Halfprin) 81 mg DAILY PO Last administered on 10/28/16 08:47; Admin Dose 81 MG; Start 10/26/16 at 09:30 Latanoprost (Xalatan) 1 drop QHS BOTH EYES Last administered on 10/28/16 21:59 ; Admin Dose 1 DROP; Start 10/26/16 at 21:00 Lisinopril (Zestril) 40 mg DAILY PO Last administered on 10/28/16 08:47; Admin Dose 40 MG; Start 10/26/16 at 09:30 Felodipine (Plendil) 2.5 mg DAILY PO Last administered on 10/28/16 08:47; Admin Dose 2.5 MG; Start 10/27/16 at 09:00 Multivitamins Therapeutic (Theragran) 1 tab DAILY PO Last administered on 08:47; Admin Dose 1 TAB; Start 10/27/16 at 09:00 Polyethylene Glycol (Miralax) 8.5 gm DAILY PO Last administered on 10/27/16 08 :38; Admin Dose 8.5 GM; Start 10/26/16 at 16:30 Tolterodine Tartrate (Detrol La) 4 mg DAILY PO Last administered on 10/28/16 08:46; Admin Dose 4 MG; Start 10/27/16 at 10:30 Atorvastatin Calcium (Lipitor) 40 mg HS PO Last administered on 10/28/16 20:52 ; Admin Dose 40 MG; Start 10/27/16 at 21:00 Carvedilol (Coreg) 3.125 mg BID PO Last administered on 10/28/16 20:53; Admin Dose 3.125 MG; Start 10/27/16 at 21:00 CRISTINA CHAMPAGNE MD Oct 28, 2016 23:19
[2016-10-29] VITALS (8 sets, daily range): BP systolic 99–148; BP diastolic 58–127; PULSE 51–61; RESP 15–20
[2016-10-29] MEDS: FUROSEMIDE 40 MG TAB PO SCH (05:36)
[2016-10-29] MEDS: FELODIPINE (ER) 2.5 MG TAB PO SCH (09:23)
[2016-10-29] MEDS: POLYETHYLENE GLYCOL 17 GM PACKET PO SCH (09:23)
[2016-10-29] MEDS: LISINOPRIL 20 MG TAB PO SCH (09:23)
[2016-10-29] MEDS: TOLTERODINE (SR) 4 MG CAP PO SCH (09:23)
[2016-10-29] MEDS: ASPIRIN (EC) 81 MG TAB PO SCH (09:24)
[2016-10-29] MEDS: MULTIVITAMINS THERAPEUTIC TAB PO SCH (09:30)
[2016-10-29] MEDS: ENOXAPARIN 40 MG/0.4 ML SYG SC SCH (09:30)
[2016-10-29] MEDS ORDERED: CARV3.1260 PO (10:09)
[2016-10-29] MEDS ORDERED: ATOR40TA68 PO (10:09)
[2016-10-29] MEDS ORDERED: FURO40TA4 PO (10:09)
--- NOTE | 2016-10-29 10:12 | PDOCDIS ---
Discharge Instructions CONDITION Patient Condition: Stable FOLLOW UP/APPOINTMENTS Follow-up Plan Follow up with your regular doctor this week as we made some big changes to your blood pressure medications DECREASED carvedilol dose from 6.25 to 3.125 twice daily ADDED lasix 40 mg twice daily also started atorvastatin NADIA EDWARDS MD Oct 29, 2016 10:12
--- NOTE | 2016-10-29 10:18 | DS ---
Date/Time of Note Date/Time of Note DATE: 10/29/16 TIME: 10:12 Discharge Summary Admission/Discharge Info Admit Date/Time Oct 25, 2016 at 23:35 Discharge Date/Time Discharge Diagnosis shortness of breath 2/2 pulmonary edema Patient Condition: Stable Consults cardiology Procedures . R Ribs XR IMPRESSION: 1. Nonvisualization of the patient's known mildly displaced posterior right rib fracture. 2. Cardiomegaly with findings suggestive of mild to moderate hydrostatic edema and small right effusion. No right pneumothorax. 10.26 CTA chest IMPRESSION: 1. No pulmonary emboli through the level of the subsegmental pulmonary arteries. 2. Cardiomegaly with mild to moderate pulmonary edema and small bilateral effusions, right greater than left. 3. Bilateral pulmonary nodules with the largest measuring 2 mm in the right middle lobe. Per the Fleischner Society, if the patient is at low risk, no further follow-up is needed. If the patient is at high risk, follow-up at 12 months is optional. 4. Multivessel coronary artery calcifications and atherosclerotic changes of the aorta. 10.26 TTE Conclusions 1. Normal left ventricular systolic function. Normal left ventricular cavity size. Mild concentric left ventricular hypertrophy. Ejection fraction is visually estimated at 60-65 %. 2. Mild mitral leaflet calcification. Mild mitral annular calcification. Mild mitral regurgitation. 3. Mild to moderate aortic stenosis. Mean PG 15.00 mmHg. Aortic valve area 1.80 cm2. Trace aortic valve regurgitation. (consider repeat echo to recalculate aortic valve area/gradient as visually valve appears more stenotic than calculation). 4. Normal appearance of the tricuspid valve. Estimated peak PA systolic pressure 38 mmHg. There is mild tricuspid regurgitation. 5. Normal pulmonic valve appearance. There is trace pulmonic regurgitation. 9 NM stress test IMPRESSION: 1. No evidence of stress induced myocardial ischemia. 2. Ejection fraction at stress is 68%. labs a1c 5.8, LDL 143, BNP on admission 434 admission trop negative-->0.2 max, then downtrended Hx of Present Illness Chief complaint: Shortness of breath This is a 89-year-old male was brought in by paramedics in respiratory distress on CPAP for acute onset shortness of breath started shortly after the patient had eaten earlier in the evening and had a bowel movement. . On arrival the patient had oxygen saturation in the 70s on room air. He had chest discomfort as well. Upon my examination patient was seen in bed sleeping in no acute distress. He is easily arousable. Patient reports that approximately a week or so ago he fell down from his bed and experienced right-sided pain to the lateral part of his torso/flank. He went to see his primary care doctor who thought that maybe the patient may have sustained rib fracture. Patient today was attempting have a bowel movement were he started experiencing shortness of breath that is why he came to the hospital. He still reports pain on his right flank/lateral thorax. Allergies: NKDA Medications: See APR Hospital Course Pt admitted for shortness of breath, elevated troponin. Cardiac eval showed nl EF on TTE as well as nl stress test. Pulmonary edema likely 2/2 splinting from recent rib injury. SOB resolved with dieresis. Lung imaging with incidental finding of micronodule. Pt advised to f/u with PCP for consideration for repeat testing. BB dose decrease for occ low HRs. Pt also started on BID lasix. Pt to see PCP this week for chemP, BP check, eval to see if lasix should be continued or not. Home Meds Active Scripts Furosemide* (Furosemide*) 40 Mg Tablet, 40 MG PO BID DIURETICS for 7 Days, #14 TAB Prov:NADIA EDWARDS MD 10/29/16 Carvedilol* (Carvedilol*) 3.125 Mg Tablet, 3.125 MG PO BID for 30 Days, #60 TAB Prov:NADIA EDWARDS MD 10/29/16 Atorvastatin* (Atorvastatin*) 40 Mg Tablet, 40 MG PO HS for 30 Days, #30 TAB Prov:NADIA EDWARDS MD 10/29/16 Reported Medications Multivitamins* (Theragran*) 1 Tab Tab, 1 TAB PO DAILY, TAB 10/25/16 [place]-3 Fatty Acids/Fish Oil (Fish Oil 1,000 mg Capsule) 1 Each Capsule, 1 EACH PO, CAP 10/25/16 Polyethylene Glycol* (Miralax*) 17 Gm Powd.pack, 8.5 GM PO DAILY, #30 PACKET 10/25/16 Latanoprost (Xalatan) 2.5 Ml Drops, 1 DROP BOTH EYES QHS, #1 BOTTLE 10/25/16 Carvedilol* (Carvedilol*) 6.25 Mg Tablet, 6.25 MG PO BID, #60 TAB 10/25/16 Mirabegron (Myrbetriq) 50 Mg Tab.er.24h, 50 MG PO DAILY, TAB 10/25/16 Glucosamine Sulfate 2KCL (GLUCOSAMINE) 1,000 Mg Tablet, 1500 MG PO, TAB 10/25/16 Tamsulosin Hcl* (Tamsulosin Hcl*) 0.4 Mg Cap.er.24h, 0.4 MG PO BID WITH MEALS, CAP 10/25/16 Aspirin* (Aspirin* EC) 81 Mg Tablet.dr, 81 MG PO DAILY, TAB 10/25/16 Lisinopril* (Lisinopril*) 40 Mg Tablet, 40 MG PO DAILY, #30 TAB 10/25/16 Felodipine* (Felodipine*) 2.5 Mg Tab.sr.24h, 2.5 MG PO DAILY, TAB.SA 10/25/16 Follow-up Plan Follow up with your regular doctor this week as we made some big changes to your blood pressure medications DECREASED carvedilol dose from 6.25 to 3.125 twice daily ADDED lasix 40 mg twice daily also started atorvastatin PCP should do BP/HR check and ChemP copy of dc summary given to patient and faxed to PCP's office prior to discharge Primary Care Provider Daniel Garcia MD [facility] [place] [address] fax: Time spent on discharge: > 30 minutes NADIA EDWARDS MD Oct 29, 2016 10:18
[2016-10-29] MEDS ORDERED: MAGNESIUM CITRATE 300 ML BTL PO PRN (10:30)
[2016-10-29] MEDS ORDERED: LACTULOSE 30ML CUP PO PRN (10:30)
== END 2016-10-29 12:25 | disposition home or self-care (01) | DRG 280 ==
LOC: E/R 21:45 → MS4 23:35
PROVIDERS: ADMIT Family Medicine; ATTEND Family Medicine
PROC: 5A09357 Assistance with Respiratory Ventilation, Less than 24 Consecutive Hours, Continuous Positive Airway Pressure (ICD-10-PCS; principal; 2016-10-25)
DX: I11.0 Hypertensive heart disease with heart failure (principal); J96.01 Acute respiratory failure with hypoxia; I21.4 Non-ST elevation (NSTEMI) myocardial infarction; N40.0 Benign prostatic hyperplasia without lower urinary tract symptoms; H40.9 Unspecified glaucoma; E78.5 Hyperlipidemia, unspecified; I50.33 Acute on chronic diastolic (congestive) heart failure; R00.1 Bradycardia, unspecified
CPT/HCPCS: 36415; 36600; 71010; 71100; 71275; 78452; 80048; 80053; 80061; 82550; 82553; 82803; 83036; 83735; 83880; 84443; 84484; 85025; 85610; 85730; 93005; 93017; 93306; 93970; 94660; 96365; 96366; 96375; A9500; A9505; J1650; J1940; J2785; Q9967

== ENCOUNTER 2016-10-29 20:02 | Inpatient (IN) | payer OTHER ==
[~2016-10-29] VITALS: Ht 175.3 cm; Wt 108.0 kg
[~2016-10-29 20:02] MED LIST: ASPI-664 PO; ATOR40TA68 PO; CARV3.1260 PO; CARV6.2579 PO; FELO2.5T3 PO; FURO40TA4 PO; GLUC100015 PO; LATA2.5D9 BOTH EYES; LISI40TA9 PO; MIRA50TA PO; MULTI PO; OMEG-135 PO; POLY17PO6 PO; TAMS0.4C2 PO
[2016-10-29 22:09] LABS: BASOPHILS % 0.4 % (0.0-2.0); EOSINOPHILS # 0.2 10^3/ul (0.0-0.5); EOSINOPHILS % 2.2 % (0.0-7.0); HEMATOCRIT 42.6 % (42.0-52.0); LYMPHOCYTES # 2.2 10^3/ul (0.8-2.9); LYMPHOCYTES % 27.8 % (15.0-51.0); MEAN CORPUSCULAR HGB CONC 32.9 g/dl (32.0-37.0); MEAN CORPUSCULAR VOLUME 97.5 fl (82.0-101.0); MEAN PLATELET VOLUME 11.2 fl (7.4-10.4); MONOCYTE # 0.9 10^3/ul (0.3-0.9); MONOCYTES % 11.1 % (0.0-11.0); NEUTROPHIL # 4.6 10^3/ul (1.6-7.5); PLATELET COUNT 219 10^3/UL (140-415); RED BLOOD COUNT 4.37 10^6/ul (4.70-6.10); RED CELL DISTRIBUTION WIDTH 12.6 % (11.5-14.5); WHITE BLOOD COUNT 7.9 10^3/ul (4.8-10.8)
[2016-10-29 22:12] LABS: ADD UMIC YES; UR ASCORBIC ACID NEGATIVE (NEGATIVE); UR BILIRUBIN (Dip) NEGATIVE (NEGATIVE); UR BLOOD (Dip) 3+ mg/dL (NEGATIVE); UR CLARITY CLOUDY (CLEAR); UR COLOR RED (YELLOW); UR GLUCOSE (Dip) NEGATIVE (NEGATIVE); UR KETONES (Dip) NEGATIVE (NEGATIVE); UR LEUKOCYTE ESTERASE (Dip) 1+ Leu/ul (NEGATIVE); UR NITRITE (Dip) NEGATIVE (NEGATIVE); UR RBC > 182 /HPF (0-5); UR SPECIFIC GRAVITY (Dip) 1.019 (1.003-1.030); UR TOTAL PROTEIN (Dip) 2+ mg/dl (NEGATIVE); UR UROBILINOGEN (Dip) 2+ mg/dL (NEGATIVE)
[2016-10-29 22:24] LABS: INR 0.99; PROTIME 13.1 Sec (12.2-14.2)
[2016-10-29 22:25] LABS: PARTIAL THROMBOPLASTIN TIME 34.6 Sec (25.0-35.0)
[2016-10-29 22:29] LABS: ALBUMIN 4.2 g/dl (3.3-4.9); ALBUMIN/GLOBULIN RATIO 1.13; BILIRUBIN,INDIRECT 0.3 mg/dl (0-1.1); BILIRUBIN,TOTAL 0.3 mg/dl (0.2-1.3); CALCIUM 9.8 mg/dl (8.4-10.2); POTASSIUM 4.5 mmol/L (3.5-5.1); TOTAL PROTEIN 7.9 g/dl (6.1-8.1)
--- NOTE | 2016-10-29 22:48 | ERA ---
ER Documentation Chief Complaint Date/Time DATE: 10/29/16 TIME: 22:43 Chief Complaint states blood in urine x day, just got dc'd today HPI 89-year-old male that presents to the emergency department complaining of a sudden onset of painless hematuria that occurred 2 hours after the patient had been discharged earlier today. The patient had been admitted to the hospital for cardiac workup and had been started on Lovenox. When the patient went home he stated he urinated and throughout the entire stream had gross hematuria. He denied any frequency urgency or dysuria. He has had no fevers no shaking or chills. He urinated shortly after and indicated the hematuria had improved but did not completely resolved. However just prior to arrival he urinated again and gross hematuria which again was painless. He denies any shortness of breath at rest or exertion. He states he has been taking all of his medications as instructed. He does indicate that 2 weeks prior to arrival he had a mechanical fall out of his bed and landed on the floor on the right-hand side. He indicated there was bruising of the right rib cage but is complaining of a significant amount of tenderness with movement over the right side of his rib cage. Today he did not hit his head or lose consciousness when he fell 2 weeks ago and is not complaining of a headache or shortness of breath. ROS All systems reviewed and are negative except as per history of present illness. Medications Home Meds Active Scripts Furosemide* (Furosemide*) 40 Mg Tablet, 40 MG PO BID DIURETICS for 7 Days, #14 TAB Prov:NADIA EDWARDS MD 10/29/16 Carvedilol* (Carvedilol*) 3.125 Mg Tablet, 3.125 MG PO BID for 30 Days, #60 TAB Prov:NADIA EDWARDS MD 10/29/16 Atorvastatin* (Atorvastatin*) 40 Mg Tablet, 40 MG PO HS for 30 Days, #30 TAB Prov:NADIA EDWARDS MD 10/29/16 Reported Medications Multivitamins* (Theragran*) 1 Tab Tab, 1 TAB PO DAILY, TAB 10/25/16 [place]-3 Fatty Acids/Fish Oil (Fish Oil 1,000 mg Capsule) 1 Each Capsule, 1 EACH PO, CAP 10/25/16 Polyethylene Glycol* (Miralax*) 17 Gm Powd.pack, 8.5 GM PO DAILY, #30 PACKET 10/25/16 Latanoprost (Xalatan) 2.5 Ml Drops, 1 DROP BOTH EYES QHS, #1 BOTTLE 10/25/16 Mirabegron (Myrbetriq) 50 Mg Tab.er.24h, 50 MG PO DAILY, TAB 10/25/16 Glucosamine Sulfate 2KCL (GLUCOSAMINE) 1,000 Mg Tablet, 1500 MG PO, TAB 10/25/16 Tamsulosin Hcl* (Tamsulosin Hcl*) 0.4 Mg Cap.er.24h, 0.4 MG PO BID WITH MEALS, CAP 10/25/16 Aspirin* (Aspirin* EC) 81 Mg Tablet.dr, 81 MG PO DAILY, TAB 10/25/16 Lisinopril* (Lisinopril*) 40 Mg Tablet, 40 MG PO DAILY, #30 TAB 10/25/16 Felodipine* (Felodipine*) 2.5 Mg Tab.sr.24h, 2.5 MG PO DAILY, TAB.SA 10/25/16 Discontinued Reported Medications Carvedilol* (Carvedilol*) 6.25 Mg Tablet, 6.25 MG PO BID, #60 TAB 10/25/16 Allergies Allergies: Coded Allergies: No Known Allergy (Unverified , 10/25/16) PMhx/Soc History of Surgery: No (Denies surgical hx) Anesthesia Reaction: No Hx Neurological Disorder: No Hx Respiratory Disorders: Yes Hx Cardiac Disorders: Yes (HTN) Hx Psychiatric Problems: No Hx Miscellaneous Medical Probl: Yes (BPH, HLD) Hx Alcohol Use: No Hx Substance Use: No Hx Tobacco Use: No Smoking Status: Never smoker Physical Exam Vitals Vital Signs Date Time Temp Pulse Resp B/P Pulse Ox O2 Delivery O2 Flow Rate FiO2 10/29/16 20:09 98.4 90 20 169/73 95 Physical Exam Constitutional:Well-developed. Well-nourished. HEENT:Normocephalic. Atraumatic.Pupils were equal round reactive to light. Moist mucous membranes.No tonsillar exudates. He is a soft hematoma. No hemotympanum. No conjunctival pallor. Neck: No nuchal rigidity. No lymphadenopathy. No posterior cervical spine tenderness or step-offs. Respiratory: Not using accessory muscles of respiration.Lungs were clear to auscultation bilaterally. No rhonchi. No rales. No wheezing. Cardiovascular: Regular rate regular rhythm.No murmurs. No rubs were appreciated.S1, S2 normal. Distal pulses are palpable 2+ bilaterally. GI: Abdomen was soft. Nontender. Non Distended. No pulsatile abdominal masses or bruits. No rebound. No guarding. Bowel sounds were present and normal. : Testicular swelling or tenderness. No gross blood present at the urethra. Muscle skeletal: Full range of motion of both the upper and lower extremities bilaterally.Normal muscle tone.No assymetrical calf tenderness or swelling. Skin: No petechia, no purpura. No lesions on the palms or the soles of the feet. No maculopapular rash. Ecchymosis over the lateral right rib cage specifically over T11 with no crepitus no ecchymosis and no flail chest. NEURO: Patient was alert, awake, orientated x3.No facial droop. Gait observed and normal with no ataxia.Speech had regular rate and rhythm. No focal neurological deficits. Result Diagram: 10/29/16219910/29/162199 Results 24 hrs Laboratory Tests Test 10/29/16 21:53 10/29/16 22:00 Urine Color RED Urine Clarity CLOUDY Urine pH 7.0 Urine Specific Solo 1.019 Urine Ketones NEGATIVEmg/dL Urine Nitrite NEGATIVEmg/dL Urine Bilirubin NEGATIVEmg/dL Urine Urobilinogen 2+mg/dL Urine Leukocyte Esterase 1+Brenda/ul Urine Microscopic RBC > 182/HPF Urine Microscopic WBC 106/HPF Urine Hemoglobin 3+mg/dL Urine Glucose NEGATIVEmg/dL Urine Total Protein 2+mg/dl White Blood Count 7.910^3/ul Red Blood Count 4.3710^6/ul Hemoglobin 14.0g/dl Hematocrit 42.6% Mean Corpuscular Volume 97.5fl Mean Corpuscular Hemoglobin 32.0pg Mean Corpuscular Hemoglobin Concent 32.9g/dl Red Cell Distribution Width 12.6% Platelet Count 94189^3/UL Mean Platelet Volume 11.2fl Neutrophils % 58.0% Lymphocytes % 27.8% Monocytes % 11.1% Eosinophils % 2.2% Basophils % 0.4% Nucleated Red Blood Cells % 0.0/100WBC Neutrophils # 4.610^3/ul Lymphocytes # 2.210^3/ul Monocytes # 0.910^3/ul Eosinophils # 0.210^3/ul Basophils # 0.010^3/ul Nucleated Red Blood Cells # 0.010^3/ul Prothrombin Time 13.1Sec Prothrombin Time Ratio 1.0 INR International Normalized Ratio 0.99 Activated Partial Thromboplast Time 34.6Sec Sodium Level 139mmol/L Potassium Level 4.5mmol/L Chloride Level 96mmol/L Carbon Dioxide Level 35mmol/L Anion Gap 13 Blood Urea Nitrogen 40mg/dl Creatinine 1.00mg/dl Glucose Level 122mg/dl Calcium Level 9.8mg/dl Total Bilirubin 0.3mg/dl Direct Bilirubin 0.00mg/dl Indirect Bilirubin 0.3mg/dl Aspartate Amino Transf (AST/SGOT) 41IU/L Alanine Aminotransferase (ALT/SGPT) 49IU/L Alkaline Phosphatase 94IU/L Total Protein 7.9g/dl Albumin 4.2g/dl Globulin 3.70g/dl Albumin/Globulin Ratio 1.13 Procedures/MDM Patient presented to the emergency department with painless hematuria recently started on Lovenox. The patient had IV access was established by nursing staff. The patient was given 1 g of ceftriaxone intravenously after urine culture was obtained. The patient's urinalysis did have gross hematuria with possible pyuria that could be result of an early urinary tract infection. His hemoglobin was 14.0, however given the patient's multiple comorbidities and that this was painless he will be admitted for further evaluation to hospitalist Dr. Hutchins. Obtained a CT scan of the patient's chest which showed no evidence of pneumothorax or rib fracture. Departure Diagnosis: Primary Impression: Hematuria APURVA AWAN Oct 29, 2016 22:48
[2016-10-29] MEDS ORDERED: CEFTRIAXONE 1 GM/50 ML (PMX) 50 ML IVPB ONE (23:00)
--- NOTE | 2016-10-29 23:16 | RADRPT ---
AMENDMENT: 10/29/2016 11:16:26 PM Tuan Manning M.D PROCEDURE: CT Chest without contrast. CLINICAL INDICATION: Right-sided rib cage pain after a fall. TECHNIQUE: CT scan of the chest without contrast was performed on a multidetector high-resolution CT scanner. Coronal and sagittal reformatted images were obtained from the axial source images. The total exam CTDI equals 16 mGy and the total exam DLP equals 552 mGy-cm. One or more of the following dose reduction techniques were used: - Automated exposure control. - Adjustment of the mA and/or kV according to patient size. Use of iterative reconstruction technique. COMPARISON: CT angiogram of the chest 10/26/2016. FINDINGS: The thyroid gland is small but stable. No thyroid nodule is identified. The trachea is normal. No en larged supraclavicular or superior mediastinal lymph nodes are identified. There are vascular calcif ications in the proximal right subclavian artery, in the brachial cephalic artery and aortic arch. N o aneurysm is identified. The main pulmonary artery and pulmonary artery outflow tracts are normal. The heart is upper limits of normal in size with no pericardial effusion identified. There are scattered vascular calcifications in the left coronary artery. There are calcified lymph nodes ventral to the lower thoracic portion of the trachea. There are calc ified lymph nodes in the area of the right hilum. These may be the result of a granulomatous process such as TB. There is a stable 1-2 mm nodule in the periphery of the right middle lobe consistent wi th a granuloma which requires no additional follow-up. There is a small 1-2 mm calcified granuloma a long the major fissure in the dorsal periphery of the posterior segment of the right upper lobe. The re is a 1 mm pulmonary nodule in the right lower lobe. Series 4; There is increased AP diameter of the chest consistent with pulmonary hyperinflation. The left diaph ragm is mildly elevated. There is a plate-like scarring/atelectasis in the right upper lobe. There i s some pleural thickening along the superior right major fissure suspicious for a pleural effusion. The bilateral pleural effusions identified on 10/26/2016 have diminished in size. There is an acute fracture of the anterior lateral right eighth rib. The other ribs are intact. No a cute right-sided rib fracture or pneumothorax is identified. There are degenerative osteophytes in the lower cervical, thoracic and upper lumbar spine. There is a dextroscoliosis in the upper third of the thoracic spine. No acute bony fracture or bone metastasi s is identified. The liver is enlarged measuring 20.7 cm AP. No hepatic mass or intrahepatic biliary ductal dilatatio n is identified. The visible portions of the gallbladder and gallbladder wall are normal. There is fecal material in the transverse colon and splenic flexure. The spleen is normal in size. There is a 1.1 cm accessory splenule. The visible portions of the panc reas are normal. The adrenal glands are normal as visualized. Only a small portion of the kidneys ar e visualized. These are not evaluated. IMPRESSION: 1. There is an acute fracture of the anterior right eighth rib. 2. Pulmonary hyperinflation with small pleural effusions which decreased in size as compared to 10/07. 3. There are multiple calcified hilar and mediastinal lymph nodes consistent with a prior granuloma tous process such as TB. 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 These require no additional follow-up. Plate-like scarring or stable atelectasis in the rig ht upper lobe. 4. Hepatomegaly. 5. Constipation. 6. 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 6. Borderline cardiomegaly. 7. Findings were phoned to Dr. Sampson at 11:15 p.m.. RPTAT:AAJJ Physician Claudette Date Time Electronically viewed and signed by Physician Claudette on 10/29/2016 23:16 JESSICA/
[2016-10-29] MEDS: SOD CHLORIDE 0.9% 1,000 ML IV SCH (23:46)
--- NOTE | 2016-10-29 23:51 | HP ---
Date/Time of Note Date/Time of Note DATE: 10/29/16 TIME: 23:50 Assessment/Plan VTE Prophylaxis VTE Prophylaxis Intervention: SCD's Lines/Catheters IV [facility]from [facility]): Saline Lock Assessment/Plan Chief Complaint/Hosp Course This is a 89-year-old male being admitted to the telemetry floor for: #1 painless hematuria: Patient reports bright red episodes of hematuria. He does have a previous history of BPH. While he was here during his previous admission he did have a Velasco inserted. Will check a PSA level. Patient does reports that he was going to have a procedure with his urologist as an outpatient for his BPH. Will monitor his H&H every 6 hours. Urology was consulted by the ED. patient at the current time refuse a Velasco. #2 diastolic heart failure: At the current time table. Patient does not appear in any respiratory distress. Will continue home medications, except will hold aspirin at this time secondary to #1. #3 acute rib fracture: There is an acute fracture of the anterior right eighth rib from when the patient fell 2 weeks ago which is likely causing the patient' s right-sided pain. The current time will provide pain control. And encourage incentive spirometer. #4 multiple mediastinal lymph nodes: There are multiple calcified hilar and mediastinal lymph nodes consistent with a prior granulomatous process such as TB. 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 These require no additional follow-up as per the CT report. #5 hypertension: Continue patient home medication #6 BPH: We will check a PSA level, urology on consult as per ED. #7 DVT and GI prophylaxis: SCDs, acid herbert Further treatment strategy will be implemented as per the clinical course Problems: HPI/ROS Admit Date/Time Admit Date/Time Hx of Present Illness cc: hematuria 89-year-old male that presents to the emergency department complaining of a sudden onset of painless hematuria that occurred 2 hours after the patient had been discharged earlier today. The patient had been admitted to the hospital for cardiac workup and had been started on Lovenox. When the patient went home he stated he urinated and throughout the entire stream had gross hematuria. He denied any frequency urgency or dysuria. He has had no fevers no shaking or chills. He urinated shortly after and indicated the hematuria had improved but did not completely resolved. However just prior to arrival he urinated again and gross hematuria which again was painless. He denies any shortness of breath at rest or exertion. He states he has been taking all of his medications as instructed. He does indicate that 2 weeks prior to arrival he had a mechanical fall out of his bed and landed on the floor on the right-hand side. He indicated there was bruising of the right rib cage but is complaining of a significant amount of tenderness with movement over the right side of his rib cage. Today he did not hit his head or lose consciousness when he fell 2 weeks ago and is not complaining of a headache or shortness of breath. allergies: nkda meds: see apr Const: As per HPI Eyes : No pain discharge or redness or change in visual acuity ENT: No pain, sore throat, congestion, congestion, dysphagia or discharge Respiratory: No shortness of breath, cough, sputum, wheezing, or pleuritic pain Cardiovascular: No chest pain, palpitation, PND, or edema GI : no change in appetite, abdominal pain, nausea, vomiting, diarrhea, constipation, or change in the color his stool Genitourinary: As per HPI Musculoskeletal: No joint pain, back pain, neck pain, restricted range of motion in neck or joints Skin: No rash, bruising or hives Neuro: No headache, dizziness, syncope, seizure, focal weakness Endocrine: No polyuria, polydipsia, temperature intolerance Psych: No hallucination, depression, anxiety or suicidal ideation PMH/Family/Social Past Medical History Diastolic heart failure, Hypertension, BPH Past Surgical History Past Surgical Hx: no surgical history Family History Significant Family History: no pertinent family hx Social History Smoking Status: Never smoker Drug Use: none Exam/Review of Systems Vital Signs Vitals Vital Signs Date Time Temp Pulse Resp B/P Pulse Ox O2 Delivery O2 Flow Rate FiO2 10/29/16 20:09 98.4 90 20 169/73 95 Exam Exam General: Patient is a pleasant obese male lying in bed in no acute distress HEENT: Atraumatic, normocephalic. The pupils are equal, round and reactive. Extraocular motor are intact Neck: Supple with full range of motion. No rigidity or meningismus Chest: Nontender Lungs: Clear to auscultation bilaterally no crackles rales or wheezing Heart: Normal S1-S2, Regular rhythm and rate. No overt murmurs appreciated Abdomen: Soft , nontender, nondistended , bowel sounds are present. No guarding no rebound tenderness , No masses or organomegaly. No costovertebral temporal angle mass Extremities: Normal to inspection, no edema no cyanosis Neurologic: Normal mental status, speech normal, cranial nerves II through XII are intact, motor and sensory are intact, no focal weakness Genitourinary: Deferred Additional Comments AMENDMENT: 10/29/2016 11:16:26 PM Tuan Manning M.D PROCEDURE: CT Chest without contrast. CLINICAL INDICATION: Right-sided rib cage pain after a fall. TECHNIQUE: CT scan of the chest without contrast was performed on a multidetector high-resolution CT scanner. Coronal and sagittal reformatted images were obtained from the axial source images. The total exam CTDI equals 16 mGy and the total exam DLP equals 552 mGy-cm. One or more of the following dose reduction techniques were used: - Automated exposure control. - Adjustment of the mA and/or kV according to patient size. Use of iterative reconstruction technique. COMPARISON: CT angiogram of the chest 10/26/2016. FINDINGS: The thyroid gland is small but stable. No thyroid nodule is identified. The trachea is normal. No enlarged supraclavicular or superior mediastinal lymph nodes are identified. There are vascular calcifications in the proximal right subclavian artery, in the brachial cephalic artery and aortic arch. No aneurysm is identified. The main pulmonary artery and pulmonary artery outflow tracts are normal. The heart is upper limits of normal in size with no pericardial effusion identified. There are scattered vascular calcifications in the left coronary artery. There are calcified lymph nodes ventral to the lower thoracic portion of the trachea. There are calcified lymph nodes in the area of the right hilum. These may be the result of a granulomatous process such as TB. There is a stable 1-2 mm nodule in the periphery of the right middle lobe consistent with a granuloma which requires no additional follow-up. There is a small 1-2 mm calcified granuloma along the major fissure in the dorsal periphery of the posterior segment of the right upper lobe. There is a 1 mm pulmonary nodule in the right lower lobe. Series 4; There is increased AP diameter of the chest consistent with pulmonary hyperinflation. The left diaphragm is mildly elevated. There is a plate-like scarring/atelectasis in the right upper lobe. There is some pleural thickening along the superior right major fissure suspicious for a pleural effusion. The bilateral pleural effusions identified on 10/26/2016 have diminished in size. There is an acute fracture of the anterior lateral right eighth rib. The other ribs are intact. No acute right-sided rib fracture or pneumothorax is identified. There are degenerative osteophytes in the lower cervical, thoracic and upper lumbar spine. There is a dextroscoliosis in the upper third of the thoracic spine. No acute bony fracture or bone metastasis is identified. The liver is enlarged measuring 20.7 cm AP. No hepatic mass or intrahepatic biliary ductal dilatation is identified. The visible portions of the gallbladder and gallbladder wall are normal. There is fecal material in the transverse colon and splenic flexure. The spleen is normal in size. There is a 1.1 cm accessory splenule. The visible portions of the pancreas are normal. The adrenal glands are normal as visualized. Only a small portion of the kidneys are visualized. These are not evaluated. IMPRESSION: 1. There is an acute fracture of the anterior right eighth rib. 2. Pulmonary hyperinflation with small pleural effusions which decreased in size as compared to 10/26/2016. 3. There are multiple calcified hilar and mediastinal lymph nodes consistent with a prior granulomatous process such as TB. 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 These require no additional follow-up. Plate-like scarring or stable atelectasis in the right upper lobe. 4. Hepatomegaly. 5. Constipation. 6. 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 6. Borderline cardiomegaly. 7. Findings were phoned to Dr. Sampson at 11:15 p.m.. RPTAT:AAJJ Physician Claudette Date Time Electronically viewed and signed by Physician Claudette on 10/29/2016 23:16 JM/ CC: APURVA AWAN Labs Result Diagram: 10/29/16219910/29/162199 FABRIZIO VALENCIA Oct 29, 2016 23:51
[2016-10-30] VITALS (13 sets, daily range): BP systolic 126–156; BP diastolic 49–78; PULSE 59–93; RESP 17–21; Ht 175.3 cm; Wt 108.0 kg
[2016-10-30] MEDS ORDERED: ONDANSETRON 4 MG INJ IV PRN
[2016-10-30] MEDS ORDERED: NACL 0.9% 3 ML SYG IV SCH
[2016-10-30] MEDS ORDERED: ACETAMINOPHEN 325 MG TAB PO PRN
[2016-10-30] MEDS ORDERED: morphine 2 MG INJ IV PRN
[2016-10-30] MEDS: CEFTRIAXONE 1 GM/50 ML (PMX) 50 ML IVPB SCH (04:00)
[2016-10-30] MEDS ORDERED: PANTOPRAZOLE 40 MG INJ IV SCH (06:00)
--- NOTE | 2016-10-30 08:06 | RADRPT ---
PROCEDURE: US Renal CLINICAL INDICATION: Hematuria. TECHNIQUE: Multiple sonographic images of the kidneys and bladder were obtained. Evaluation of th e kidneys and bladder was performed as well with kemp scale and color and Doppler evaluation using a curved array transducer. The images were reviewed on a high-resolution PACS workstation. COMPARISON: No prior studies are available for comparison. FINDINGS: The right kidney measures 12.2 x 7.2 x 6.4 cm. The left kidney measures 12.0 x 5.9 x 5.5 cm. There is normal echogenicity within the parenchyma of the kidneys bilaterally. There is a 1.4 x 1.2 cm cyst in the lower pole of the left kidney. No perinephric fluid collection is seen. There is prostatomegaly. The gland measures 8.0 x 6.8 x 7.8 cm. IMPRESSION: 1. Unremarkable renal ultrasound. 2. Prostatomegaly. 3. 1.4 x 1.2 cm left renal cyst. RPTAT: AACC Physician Yohannes Date Time Electronically viewed and signed by Physician Yohannes on 10/30/2016 08:05 /
[2016-10-30 08:23] LABS: ALBUMIN 4.3 g/dl (3.3-4.9); ALBUMIN/GLOBULIN RATIO 1.3; BILIRUBIN,INDIRECT 0.5 mg/dl (0-1.1); BILIRUBIN,TOTAL 0.5 mg/dl (0.2-1.3); CALCIUM 9.1 mg/dl (8.4-10.2); CREATININE 0.84 mg/dl (0.61-1.24); MAGNESIUM 2.1 mg/dl (1.7-2.5); POTASSIUM 4.2 mmol/L (3.5-5.1); TOTAL PROTEIN 7.6 g/dl (6.1-8.1)
[2016-10-30] MEDS: TAMSULOSIN (SR) 0.4 MG CAP PO SCH ×2 (09:12→18:05)
[2016-10-30] MEDS: LISINOPRIL 20 MG TAB PO SCH (09:13)
--- NOTE | 2016-10-30 11:47 | PN ---
Date/Time of Note Date/Time of Note DATE: 10/30/16 TIME: 11:37 Assessment/Plan VTE Prophylaxis VTE Prophylaxis Intervention: SCD's Lines/Catheters [facility]from [facility] Saline Lock Urinary Cath still in place: No Assessment/Plan Assessment/Plan 1. Hematuria, on rocephin, follow up with urology, may need cystoscopy 2. BPH, on flomax 3. Recent fall of the bed with anterior right eighth rib 2 weeks ago, pain control. And encourage incentive spirometer. 4 Multiple mediastinal lymph nodes: There are multiple calcified hilar and mediastinal lymph nodes consistent with a prior granulomatous process such as TB. 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 These require no additional follow-up as per the CT report. 5 Hypertension, controlled 6. DVT and GI prophylaxis: SCDs, acid herbert Subjective 24 Hr Interval Summary Free Text/Dictation still with blood in urine Exam/Review of Systems Vital Signs Vitals Vital Signs Date Time Temp Pulse Resp B/P Pulse Ox O2 Delivery O2 Flow Rate FiO2 10/30/16 08:09 98.4 71 19 156/65 94 10/30/16 01:00 Room Air Intake and Output 10/29/16 10/29/16 10/30/16 15:00 23:00 07:00 Intake Total 300 ml Output Total 500 ml Balance -200 ml Exam Constitutional: alert, obese, oriented, well developed Psych: nl mood/affect, no complaints Head: atraumatic, normocephalic Eyes: EOMI, PERRL, nl conjunctiva, nl lids ENMT: nl external ears & nose, nl lips & teeth, nl nasal mucosa & septum Neck: non-tender, supple Respiratory: clear to auscultation, normal air movement, No congested cough, No crackles/rales, No diminished breath sounds, No intercostal retraction, No labored breathing, No other, No respirations, No tactile fremitus, No wheezing Cardiovascular: nl pulses, regular rate and rhythm, No S3, No S4, No bruits, No diastolic murmur, No edema, No gallop, No irregular rhythm, No jugular venous distention (JVD), No murmurs/extra sounds, No other, No rub, No systolic murmur Gastrointestinal: nl liver, spleen, non-tender, No ascites, No bowel sounds, No distended, No firm, No hepatomegaly, No mass , No other, No rebound or guarding, No soft, No splenomegaly, No surgical scars , No tender Musculoskeletal: nl extremities to inspection Extremities: normal pulses, No calf tenderness, No clubbing, No cyanosis, No edema, No other, No palpable cord, No pitting pedal edema, No tenderness Neurological: SU[employer] TINNING II-XII intact, nl mental status, nl speech, nl strength Skin: nl turgor Lymph: nl lymph nodes Results Result Diagram: 10/29/160 10/30/16 0714 Results 24 hrs Laboratory Tests Test 10/29/16 21:53 10/29/16 22:00 10/30/16 07:14 Urine Color RED Urine Clarity CLOUDY A Urine pH 7.0 Urine Specific [place] 1.019 Urine Ketones NEGATIVE Urine Nitrite NEGATIVE Urine Bilirubin NEGATIVE Urine Urobilinogen 2+ H Urine Leukocyte Esterase 1+ H Urine Microscopic RBC > 182 H Urine Microscopic WBC 106 H Urine Hemoglobin 3+ H Urine Glucose NEGATIVE Urine Total Protein 2+ H White Blood Count 7.9 Red Blood Count 4.37 L Hemoglobin 14.0 Hematocrit 42.6 Mean Corpuscular Volume 97.5 Mean Corpuscular Hemoglobin 32.0 Mean Corpuscular Hemoglobin Concent 32.9 Red Cell Distribution Width 12.6 Platelet Count 219 Mean Platelet Volume 11.2 H Neutrophils % 58.0 Lymphocytes % 27.8 Monocytes % 11.1 H Eosinophils % 2.2 Basophils % 0.4 Nucleated Red Blood Cells % 0.0 Neutrophils # 4.6 Lymphocytes # 2.2 Monocytes # 0.9 Eosinophils # 0.2 Basophils # 0.0 Nucleated Red Blood Cells # 0.0 Prothrombin Time 13.1 Prothrombin Time Ratio 1.0 INR International Normalized Ratio 0.99 Activated Partial Thromboplast Time 34.6 Sodium Level 139 140 Potassium Level 4.5 4.2 Chloride Level 96 L 99 Carbon Dioxide Level 35 H 33 H Anion Gap 13 12 Blood Urea Nitrogen 40 H 34 H Creatinine 1.00 0.84 Glucose Level 122 118 Calcium Level 9.8 9.1 Total Bilirubin 0.3 0.5 Direct Bilirubin 0.00 0.00 Indirect Bilirubin 0.3 0.5 Aspartate Amino Transf (AST/SGOT) 41 35 Alanine Aminotransferase (ALT/SGPT) 49 47 Alkaline Phosphatase 94 86 B-Type Natriuretic Peptide 94 Total Protein 7.9 7.6 Albumin 4.2 4.3 Globulin 3.70 H 3.30 H Albumin/Globulin Ratio 1.13 1.30 Prostate Specific Antigen 16.9 H Magnesium Level 2.1 Medications Medications Current Medications Sodium Chloride (NS) 1,000 ml @ 30 mls/hr Q24H IV Last administered on 23:46; Admin Dose 30 MLS/HR; Start 10/29/16 at 23:46 Ondansetron HCl (Zofran Inj) 4 mg Q6H PRN IV NAUSEA AND/OR VOMITING; Start at 00:00 Acetaminophen (Tylenol Tab) 650 mg Q6H PRN PO PAIN LEVEL 1-3 OR FEVER; Start at 00:00 Morphine Sulfate (morphine) 2 mg Q4H PRN IV PAIN LEVEL 7-10; Start 10/30/16 at 00:00 Pantoprazole (Protonix Iv) 40 mg DAILY@06 IV Last administered on 10/30/16 05: 31; Admin Dose 40 MG; Start 10/30/16 at 06:00 Atorvastatin Calcium (Lipitor) 40 mg HS PO ; Start 10/30/16 at 21:00 Carvedilol (Coreg) 3.125 mg BID PO Last administered on 10/30/16 09:13; Admin Dose 3.125 MG; Start 10/30/16 at 09:00 Latanoprost (Xalatan) 1 drop QHS BOTH EYES ; Start 10/30/16 at 21:00 Lisinopril 40 mg 40 mg DAILY PO Last administered on 10/30/16 09:13; Admin Dose 40 MG; Start 10/30/16 at 09:00 Ceftriaxone Sodium (Rocephin) 50 ml @ 100 mls/hr Q24H IVPB ; Start 10/30/16 at 04:00 ILIANA WILL MD Oct 30, 2016 11:47
[2016-10-30] MEDS ORDERED: LATANOPROST 0.005% 2.5 ML OPH BOTH EYES SCH (21:00)
[2016-10-30] MEDS ORDERED: ATORVASTATIN 40 MG TAB PO SCH (21:00)
[2016-10-30] MEDS: SOD CHLORIDE 0.9% 1,000 ML IV SCH (23:46)
[2016-10-31] VITALS (9 sets, daily range): BP systolic 126–140; BP diastolic 58–67; PULSE 54–77; RESP 18–19
[2016-10-31 01:01] LABS: BASOPHILS % 0.5 % (0.0-2.0); EOSINOPHILS # 0.2 10^3/ul (0.0-0.5); HEMATOCRIT 38.3 % (42.0-52.0); HEMOGLOBIN 12.6 g/dl (14.0-18.0); LYMPHOCYTES # 2.9 10^3/ul (0.8-2.9); LYMPHOCYTES % 36.7 % (15.0-51.0); MEAN CORPUSCULAR HEMOGLOBIN 32.2 pg (29.0-33.0); MEAN CORPUSCULAR HGB CONC 32.9 g/dl (32.0-37.0); MEAN PLATELET VOLUME 10.9 fl (7.4-10.4); MONOCYTES % 12.9 % (0.0-11.0); NEUTROPHIL # 3.7 10^3/ul (1.6-7.5); NEUTROPHILS % 47.6 % (39.0-77.0); PLATELET COUNT 191 10^3/UL (140-415); RED BLOOD COUNT 3.91 10^6/ul (4.70-6.10); RED CELL DISTRIBUTION WIDTH 12.5 % (11.5-14.5); WHITE BLOOD COUNT 7.8 10^3/ul (4.8-10.8)
[2016-10-31] MEDS: CEFTRIAXONE 1 GM/50 ML (PMX) 50 ML IVPB SCH (04:12)
[2016-10-31] MEDS ORDERED: PANTOPRAZOLE (EC) 40 MG TAB PO SCH (06:00)
[2016-10-31] MEDS: TAMSULOSIN (SR) 0.4 MG CAP PO SCH ×2 (08:30→17:05)
[2016-10-31] MEDS: LISINOPRIL 20 MG TAB PO SCH (08:31)
[2016-10-31 08:37] LABS: BASOPHILS % 0.4 % (0.0-2.0); EOSINOPHILS # 0.2 10^3/ul (0.0-0.5); EOSINOPHILS % 2.3 % (0.0-7.0); HEMATOCRIT 39.5 % (42.0-52.0); HEMOGLOBIN 12.4 g/dl (14.0-18.0); LYMPHOCYTES # 2.5 10^3/ul (0.8-2.9); LYMPHOCYTES % 34.8 % (15.0-51.0); MEAN CORPUSCULAR HEMOGLOBIN 30.8 pg (29.0-33.0); MEAN CORPUSCULAR HGB CONC 31.4 g/dl (32.0-37.0); MEAN CORPUSCULAR VOLUME 98.3 fl (82.0-101.0); MEAN PLATELET VOLUME 11.5 fl (7.4-10.4); MONOCYTE # 0.8 10^3/ul (0.3-0.9); MONOCYTES % 11.5 % (0.0-11.0); NEUTROPHIL # 3.6 10^3/ul (1.6-7.5); NEUTROPHILS % 50.7 % (39.0-77.0); PLATELET COUNT 197 10^3/UL (140-415); RED BLOOD COUNT 4.02 10^6/ul (4.70-6.10); RED CELL DISTRIBUTION WIDTH 12.6 % (11.5-14.5); WHITE BLOOD COUNT 7.1 10^3/ul (4.8-10.8)
[2016-10-31 09:51] LABS: ALBUMIN 3.8 g/dl (3.3-4.9); ALBUMIN/GLOBULIN RATIO 1.11; BILIRUBIN,INDIRECT 0.3 mg/dl (0-1.1); BILIRUBIN,TOTAL 0.3 mg/dl (0.2-1.3); CALCIUM 9.4 mg/dl (8.4-10.2); CREATININE 0.79 mg/dl (0.61-1.24); MAGNESIUM 2.1 mg/dl (1.7-2.5); POTASSIUM 4.2 mmol/L (3.5-5.1); TOTAL PROTEIN 7.2 g/dl (6.1-8.1)
[2016-10-31 12:55] LABS: BASOPHILS % 0.3 % (0.0-2.0); EOSINOPHILS # 0.1 10^3/ul (0.0-0.5); HEMATOCRIT 36.1 % (42.0-52.0); HEMOGLOBIN 11.7 g/dl (14.0-18.0); LYMPHOCYTES # 2.7 10^3/ul (0.8-2.9); LYMPHOCYTES % 39.2 % (15.0-51.0); MEAN CORPUSCULAR HEMOGLOBIN 31.9 pg (29.0-33.0); MEAN CORPUSCULAR HGB CONC 32.4 g/dl (32.0-37.0); MEAN CORPUSCULAR VOLUME 98.4 fl (82.0-101.0); MONOCYTE # 0.8 10^3/ul (0.3-0.9); NEUTROPHIL # 3.2 10^3/ul (1.6-7.5); NEUTROPHILS % 47.2 % (39.0-77.0); PLATELET COUNT 185 10^3/UL (140-415); RED BLOOD COUNT 3.67 10^6/ul (4.70-6.10); RED CELL DISTRIBUTION WIDTH 12.5 % (11.5-14.5); WHITE BLOOD COUNT 6.8 10^3/ul (4.8-10.8)
[2016-10-31] MEDS ORDERED: BISACODYL (EC) 5 MG TAB PO PRN (15:30)
[2016-10-31] MEDS ORDERED: LEVO250T35 PO (16:14)
--- NOTE | 2016-10-31 16:22 | DS ---
Date/Time of Note Date/Time of Note DATE: 10/31/16 TIME: 16:15 Discharge Summary Admission/Discharge Info Admit Date/Time Oct 29, 2016 at 22:58 Discharge Date/Time Discharge Diagnosis 1. Hematuria, on rocephin, follow up with urology, may need cystoscopy 2. BPH, on flomax 3. Recent fall of the bed with anterior right eighth rib 2 weeks ago, pain control 4 Multiple mediastinal lymph nodes: There are multiple calcified hilar and mediastinal lymph nodes consistent with a prior granulomatous process such as TB. 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 These require no additional follow-up as per the CT report, repeat CT scan in 3 months per PCP 5 Hypertension, controlled Hospital Course 89-year-old male that presents to the emergency department complaining of a sudden onset of painless hematuria that occurred 2 hours after the patient had been discharged earlier today. The patient had been admitted to the hospital for cardiac workup and had been started on Lovenox. When the patient went home he stated he urinated and throughout the entire stream had gross hematuria. He denied any frequency urgency or dysuria. He has had no fevers no shaking or chills. He urinated shortly after and indicated the hematuria had improved but did not completely resolved. However just prior to arrival he urinated again and gross hematuria which again was painless. He denies any shortness of breath at rest or exertion. He states he has been taking all of his medications as instructed. He does indicate that 2 weeks prior to arrival he had a mechanical fall out of his bed and landed on the floor on the right-hand side. He indicated there was bruising of the right rib cage but is complaining of a significant amount of tenderness with movement over the right side of his rib cage. Today he did not hit his head or lose consciousness when he fell 2 weeks ago and is not complaining of a headache or shortness of breath. For hematuria, UA indicates UTI, he is getting rocephin, hematuria resolved today. Patient states he is follow up with his urologist outpatient. He is instructed to follow up with urology outpatient. If hematuria recurs, he will need cystoscopy. Patient fell with trauma on right chest about two weeks ago that CT scan revealed an acute fracture of the anterior right eighth rib that he will take pain medication as needed. CT scan found There are multiple calcified hilar and mediastinal lymph nodes consistent with a prior granulomatous process such as TB. 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 These require no additional follow-up as per the CT report, repeat CT scan in 3 months per PCP. Home Meds Active Scripts Levofloxacin* (Levaquin*) 250 Mg Tablet, 250 MG PO DAILY for 7 Days, TAB Prov:ILIANA WILL MD 10/31/16 Carvedilol* (Carvedilol*) 3.125 Mg Tablet, 3.125 MG PO BID for 30 Days, #60 TAB Prov:NADIA EDWARDS MD 10/29/16 Atorvastatin* (Atorvastatin*) 40 Mg Tablet, 40 MG PO HS for 30 Days, #30 TAB Prov:NADIA EDWARDS MD 10/29/16 Reported Medications Multivitamins* (Theragran*) 1 Tab Tab, 1 TAB PO DAILY, TAB 10/25/16 Yeoman-3 Fatty Acids/Fish Oil (Fish Oil 1,000 mg Capsule) 1 Each Capsule, 1 EACH PO, CAP 10/25/16 Polyethylene Glycol* (Miralax*) 17 Gm Powd.pack, 8.5 GM PO DAILY, #30 PACKET 10/25/16 Latanoprost (Xalatan) 2.5 Ml Drops, 1 DROP BOTH EYES QHS, #1 BOTTLE 10/25/16 Mirabegron (Myrbetriq) 50 Mg Tab.er.24h, 50 MG PO DAILY, TAB 10/25/16 Glucosamine Sulfate 2KCL (GLUCOSAMINE) 1,000 Mg Tablet, 1500 MG PO, TAB 10/25/16 Tamsulosin Hcl* (Tamsulosin Hcl*) 0.4 Mg Cap.er.24h, 0.4 MG PO BID WITH MEALS, CAP 10/25/16 Aspirin* (Aspirin* EC) 81 Mg Tablet.dr, 81 MG PO DAILY, TAB 10/25/16 Lisinopril* (Lisinopril*) 40 Mg Tablet, 40 MG PO DAILY, #30 TAB 10/25/16 Discontinued Reported Medications Felodipine* (Felodipine*) 2.5 Mg Tab.sr.24h, 2.5 MG PO DAILY, TAB.SA 10/25/16 Carvedilol* (Carvedilol*) 6.25 Mg Tablet, 6.25 MG PO BID, #60 TAB 10/25/16 Discontinued Scripts Furosemide* (Furosemide*) 40 Mg Tablet, 40 MG PO BID DIURETICS for 7 Days, #14 TAB Prov:NADIA EDWARDS MD 10/29/16 Follow-up Plan PCP in one week Urology in one week repeat CT chest in 3 months per PCP Primary Care Provider Not On Staff Doctor Pending Labs Laboratory Tests Test 10/31/16 00:43 10/31/16 07:42 10/31/16 12:29 White Blood Count 7.810^3/ul (4.8-10.8) 7.110^3/ul (4.8-10.8) 6.810^3/ul (4.8-10.8) Red Blood Count 3.9110^6/ul (4.70-6.10) 4.0210^6/ul (4.70-6.10) 3.6710^6/ul (4.70-6.10) Hemoglobin 12.6g/dl (14.0-18.0) 12.4g/dl (14.0-18.0) 11.7g/dl (14.0-18.0) Hematocrit 38.3% (42.0-52.0) 39.5% (42.0-52.0) 36.1% (42.0-52.0) Mean Corpuscular Volume 98.0fl (82.0-101.0) 98.3fl (82.0-101.0) 98.4fl (82.0-101.0) Mean Corpuscular Hemoglobin 32.2pg (29.0-33.0) 30.8pg (29.0-33.0) 31.9pg (29.0-33.0) Mean Corpuscular Hemoglobin Concent 32.9g/dl (32.0-37.0) 31.4g/dl (32.0-37.0) 32.4g/dl (32.0-37.0) Red Cell Distribution Width 12.5% (11.5-14.5) 12.6% (11.5-14.5) 12.5% (11.5-14.5) Platelet Count 16205^3/UL (140-415) 40887^3/UL (140-415) 71473^3/UL (140-415) Mean Platelet Volume 10.9fl (7.4-10.4) 11.5fl (7.4-10.4) 11.0fl (7.4-10.4) Neutrophils % 47.6% (39.0-77.0) 50.7% (39.0-77.0) 47.2% (39.0-77.0) Lymphocytes % 36.7% (15.0-51.0) 34.8% (15.0-51.0) 39.2% (15.0-51.0) Monocytes % 12.9% (0.0-11.0) 11.5% (0.0-11.0) 11.0% (0.0-11.0) Eosinophils % 2.0% (0.0-7.0) 2.3% (0.0-7.0) 2.0% (0.0-7.0) Basophils % 0.5% (0.0-2.0) 0.4% (0.0-2.0) 0.3% (0.0-2.0) Nucleated Red Blood Cells % 0.0/100WBC (0.0-0.0) 0.0/100WBC (0.0-0.0) 0.0/100WBC (0.0-0.0) Neutrophils # 3.710^3/ul (1.6-7.5) 3.610^3/ul (1.6-7.5) 3.210^3/ul (1.6-7.5) Lymphocytes # 2.910^3/ul (0.8-2.9) 2.510^3/ul (0.8-2.9) 2.710^3/ul (0.8-2.9) Monocytes # 1.010^3/ul (0.3-0.9) 0.810^3/ul (0.3-0.9) 0.810^3/ul (0.3-0.9) Eosinophils # 0.210^3/ul (0.0-0.5) 0.210^3/ul (0.0-0.5) 0.110^3/ul (0.0-0.5) Basophils # 0.010^3/ul (0.0-0.1) 0.010^3/ul (0.0-0.1) 0.010^3/ul (0.0-0.1) Nucleated Red Blood Cells # 0.010^3/ul (0.0-0.0) 0.010^3/ul (0.0-0.0) 0.010^3/ul (0.0-0.0) Sodium Level 138mmol/L (135-144) Potassium Level 4.2mmol/L (3.5-5.1) Chloride Level 101mmol/L (97-110) Carbon Dioxide Level 32mmol/L (21-31) Anion Gap 9 (8-16) Blood Urea Nitrogen 24mg/dl (7-20) Creatinine 0.79mg/dl (0.61-1.24) Glucose Level 111mg/dl (70-220) Calcium Level 9.4mg/dl (8.4-10.2) Magnesium Level 2.1mg/dl (1.7-2.5) Total Bilirubin 0.3mg/dl (0.2-1.3) Direct Bilirubin 0.00mg/dl (0.00-0.20) Indirect Bilirubin 0.3mg/dl (0-1.1) Aspartate Amino Transf (AST/SGOT) 34IU/L (15-46) Alanine Aminotransferase (ALT/SGPT) 42IU/L (13-69) Alkaline Phosphatase 84IU/L (42-121) Total Protein 7.2g/dl (6.1-8.1) Albumin 3.8g/dl (3.3-4.9) Globulin 3.40g/dl (1.3-3.2) Albumin/Globulin Ratio 1.11 ILIANA WILL MD Oct 31, 2016 16:22
[2016-10-31] MEDS: BISACODYL (EC) 5 MG TAB PO ONE ×2 (16:24→16:27)
[2016-10-31] MEDS ORDERED: MAGNESIUM HYDROXIDE 30ML CUP PO ONE (17:00)
== END 2016-10-31 18:36 | disposition home or self-care (01) | DRG 696 ==
LOC: E/R 20:02 → MS4 22:58
PROVIDERS: ADMIT Family Medicine; ATTEND Family Medicine
DX: R31.0 Gross hematuria (principal); I11.0 Hypertensive heart disease with heart failure; I50.30 Unspecified diastolic (congestive) heart failure; S22.31XA Fracture of one rib, right side, initial encounter for closed fracture; N40.0 Benign prostatic hyperplasia without lower urinary tract symptoms; E78.5 Hyperlipidemia, unspecified; W06.XXXA Fall from bed, initial encounter; Y93.89 Activity, other specified; Y92.013 Bedroom of single-family (private) house as the place of occurrence of the external cause; Y99.8 Other external cause status; R91.1 Solitary pulmonary nodule; K59.00 Constipation, unspecified
CPT/HCPCS: 71250; 76775; 80053; 81001; 83735; 83880; 84153; 84154; 85025; 85610; 85730; 87081; 87086; 96374; C9113; J0696; J7030